=== PATIENT | female | born 2005 | race Caucasian/White ===

== ENCOUNTER 2023-07-27 00:11 | Emergency (ER) | payer OTHER, SELFPAY ==
[2023-07-27 00:15] VITALS: BP 132/84; PULSE 81; RESP 18; TEMP 36.5; O2SAT 97; BMI 27.5
--- NOTE | 2023-07-27 01:07 | ED_ITS ---
HPI - General Adult General Chief complaint: Nausea/Vomiting/Diarrhea Stated complaint: abd pain Time Seen by Provider: 07/27/23 00:53 Source: patient Mode of arrival: walk-in Limitations: no limitations History of Present Illness HPI narrative: presents complaining of epigastric pain and nausea. Did not vomit . No diarrhea or fever. Not short of breath and has not been coughing. present all day Related Data Home Medications Medication Instructions Recorded Confirmed omeprazole 40 mg capsule,delayed 40 mg PO DAILY 07/27/23 07/27/23 release rimegepant 75 mg disintegrating 75 mg PO DAILY 07/27/23 07/27/23 tablet (Nurtec ODT) Allergies Allergy/AdvReac Type Severity Reaction Status Date / Time amoxicillin Allergy Mild Verified 07/27/23 00:20 bee venom protein (honey bee) Allergy Mild Verified 07/27/23 00:20 morphine Allergy Mild Hives Verified 07/27/23 00:20 Review of Systems ROS Status of ROS 10 or more systems reviewed and unremark able except as noted in history and below Exam Constitutional Vital Signs, click to edit/add: Last Vital Signs Temp 97.7 F 07/27/23 00:15 Pulse 68 07/27/23 01:50 Resp 18 07/27/23 00:15 BP 117/74 07/27/23 01:50 Pulse Ox 98 07/27/23 01:50 O2 Del Method Room Air 07/27/23 00:15 Common normals: no apparent distress, average body habitus, oriented x3, no limitations, healthy appearing and alert Eye Common normals: PERRL, EOMs intact bilaterally and conjunctivae normal Respiratory Common normals: normal respiratory effort, no retractions, no use of accessory muscles and clear to auscultation bilaterally Cardio Common normals: regular rate, regular rhythm, S1 normal heart sound and S2 normal heart sound GI Common normals: Normal to inspection, nondistended, normoactive bowel sounds present and soft to palpation Other: mild epigastric tenderness Extremity Common normals: normal to inspection and full ROM Neuro Common normals: oriented x3, CN's II-XII intact bilaterally, moves all extremities and no focal motor deficits Psych Appearance: grossly normal Course Vital Signs Vital signs: Vital Signs Temperature 97.7 F 07/27/23 00:15 Pulse Rate 81 07/27/23 00:15 Respiratory Rate 18 07/27/23 00:15 Blood Pressure 132/84 07/27/23 00:15 Pulse Oximetry 97 07/27/23 00:15 Oxygen Delivery Method Room Air 07/27/23 00:15 Temperature 97.7 F 07/27/23 00:15 Pulse Rate 68 07/27/23 01:50 Respiratory Rate 18 07/27/23 00:15 Blood Pressure 117/74 07/27/23 01:50 Pulse Oximetry 98 07/27/23 01:50 Oxygen Delivery Method Room Air 07/27/23 00:15 Medical Decision Making MDM Narrative Medical decision making narrative: presents with epigastric pain and nausea . no fever or diarrhea. labs and diagnostic studies ordered. Patient did not want to wait for her results and signed out AMA Lab Data Labs: Lab Results 07/27/23 07/27/23 Range/Units 00:35 01:45 WBC 7.1 (4.0-11.0) 10^3/uL RBC 4.69 (4.20-5.40) 10^6/uL Hgb 13.5 (12.0-16.0) g/dL Hct 40.9 (36.0-48.0) % MCV 87.2 (81.0-99.0) fL MCH 28.8 (26.7-34.0) pg MCHC 33.0 (29.9-35.2) g/dL RDW 12.1 (11.0-15.0) % Plt Count 208 (150-450) 10^3/uL MPV 10.4 (9.5-13.5) fL Neut % (Auto) 68.7 (43.0-75.0) % Lymph % (Auto) 21.1 (20.5-60.0) % [place] % (Auto) 8.2 (1.7-12.0) % Eos % (Auto) 1.6 (0.9-7.0) % Baso % (Auto) 0.3 (0.2-2.0) % Neut # (Auto) 4.9 (1.4-6.5) 10^3/uL Lymph # (Auto) 1.5 (1.2-3.8) 10^3/uL [place] # (Auto) 0.6 (0.3-0.8) 10^3/uL Eos # (Auto) 0.1 (0.0-0.7) 10^3/uL Baso # (Auto) 0.0 (0.0-0.1) 10^3/uL Abs Immat Gran (auto) 0.01 (0.00-0.03) 10^3/uL Imm/Tot Granulo (auto) 0.1 (0.0-0.5) % Sodium 141 (136-145) mmol/L Potassium 3.7 (3.5-5.1) mmol/L Chloride 106 (98-107) mmol/L Carbon Dioxide 22.7 (21.0-32.0) mmol/L Anion Gap 16.0 BUN 12.0 (7.0-18.0) mg/dL Creatinine 0.59 (0.55-1.02) mg/dL Est GFR ( Amer) >60 (>=60) Est GFR (Non-Af Amer) >60 (>=60) BUN/Creatinine Ratio 20.3 Glucose 85 (74-106) mg/dL Lactate 1.4 (0.4-2.0) mmol/L Calcium 8.6 (8.5-10.1) mg/dL Total Bilirubin 0.3 (0.2-1.0) mg/dL AST 15 (15-37) U/L ALT 33 (14-59) U/L Alkaline Phosphatase 50 (46-116) U/L Total Protein 7.2 (6.4-8.2) g/dL Albumin 3.7 (3.4-5.0) g/dL Globulin 3.5 g/dL Albumin/Globulin Ratio 1.1 Lipase 25.0 (16.0-77.0) U/L Urine Color Lt. yellow (YELLOW) Urine Clarity Clear (CLEAR) Urine pH 6.0 (5.0-9.0) Ur Specific [place] 1.020 (1.005-1.025) Urine Protein Negative (NEG/TRACE) mg/dL Urine Glucose (UA) Negative (NEGATIVE) mg/dL Urine Ketones Negative (NEGATIVE) mg/dL Urine Occult Blood Negative (NEGATIVE) Urine Nitrite Negative (NEGATIVE) Urine Bilirubin Negative (NEGATIVE) Urine Urobilinogen 0.2 (0.2-1.0) EU/dL Ur Leukocyte Esterase Negative (NEGATIVE) Urine HCG, Qual Negative (NEGATIVE) Discharge Plan Discharge Chief Complaint: Nausea/Vomiting/Diarrhea Clinical Impression: Abdominal pain Patient Disposition: Home, Self-Care Mode of Transportation: Private Vehicle Prescriptions / Home Meds: No Action omeprazole 40 mg capsule,delayed release(DR/EC) 40 mg PO DAILY Nurtec ODT 75 mg tablet,disintegrating 75 mg PO DAILY Stand Alone Forms: Portal Instructions Referrals: Nitin Mott DO [Primary Care Provider] - 1 week Discharge Date/Time: 07/27/23 05:42
--- NOTE | 2023-07-27 01:09 | CT_ITS ---
The [address] [address] Patient Name: MAU SMITH MRN: [id number] date: 2005 Sex: F Assigned Patient Location: ER Current Patient Location: ER Accession/Order Number: [id number] Exam Date: 07/27/2023 01:56 Report Date: 07/27/2023 04:50 At the request of: DARLING JOSEPH Procedure: CT abdomen pelvis w con EXAM: CT abdomen pelvis w con HISTORY: Epigastric pain for one day. COMPARISON: None. TECHNIQUE: IV contrast enhanced CT imaging of the abdomen and pelvis was performed using 100 mL of Omnipaque 300 intravenous contrast. Sagittal and coronal reconstructions are provided. Dose reduction techniques were achieved by using automated exposure control and/or adjustment of mA and/or kV according to patient size and/or use of iterative reconstruction technique. FINDINGS: CT ABDOMEN: The lung bases are clear. The imaged heart is unremarkable. The liver, gallbladder, pancreas, spleen, adrenal glands, kidneys, stomach, small bowel, aorta and IVC appear normal. There is a retroaortic left renal vein, a normal variant. A navel piercing is incidentally noted. CT PELVIS: An IUD is in good position in the otherwise unremarkable uterus. The ovaries, urinary bladder, pelvic small bowel loops and colon appear normal. The appendix is not seen. There are no secondary findings of appendicitis. No inflammatory fat stranding, free fluid, loculated fluid or free air is seen in the abdomen or pelvis. No acute osseous abnormality or suspicious bony lesion is seen. CT/CT abdomen pelvis w con IMPRESSION: No acute findings in the abdomen or pelvis. No specific cause of epigastric pain is seen. Electronically authenticated by: ABHILASH HARDING Date: 07/27/2023 04:50
[2023-07-27 01:18] LABS: Basophils Percent Auto 0.3 % (0.2-2.0); Eosinophils Absolute Auto 0.1 10^3/uL (0.0-0.7); Eosinophils Percent Auto 1.6 % (0.9-7.0); Hematocrit 40.9 % (36.0-48.0); Hemoglobin 13.5 g/dL (12.0-16.0); Immature Granulocytes Abs Auto 0.01 10^3/uL (0.00-0.03); Immature Granulocytes Pct Auto 0.1 % (0.0-0.5); Lymphocytes Absolute Auto 1.5 10^3/uL (1.2-3.8); Lymphocytes Percent Auto 21.1 % (20.5-60.0); Mean Corpuscular Hemoglobin 28.8 pg (26.7-34.0); Mean Corpuscular Volume 87.2 fL (81.0-99.0); Mean Platelet Volume 10.4 fL (9.5-13.5); Monocytes Absolute Auto 0.6 10^3/uL (0.3-0.8); Monocytes Percent Auto 8.2 % (1.7-12.0); Neutrophils Absolute Auto 4.9 10^3/uL (1.4-6.5); Neutrophils Percent Auto 68.7 % (43.0-75.0); Platelet Count 208 10^3/uL (150-450); Red Blood Count 4.69 10^6/uL (4.20-5.40); Red Cell Distribution Width 12.1 % (11.0-15.0); White Blood Count 7.1 10^3/uL (4.0-11.0)
[2023-07-27] MEDS: 0.9 % SODIUM CHLORIDE 1,000 ML 999 ML IV (01:41)
[2023-07-27] MEDS: ONDANSETRON PF 4 MG/2 ML VIAL IV (01:42)
[2023-07-27 01:50] VITALS: BP 117/74; PULSE 68; O2SAT 98
[2023-07-27 01:52] LABS: Bilirubin Urine NEGATIVE (NEGATIVE); Blood Urine NEGATIVE (NEGATIVE); Clarity Urine CLEAR (CLEAR); Color Urine LT. YELLOW (YELLOW); Glucose Urine UA NEGATIVE (NEGATIVE); Ketones Urine NEGATIVE (NEGATIVE); Leukocyte Esterase Urine NEGATIVE (NEGATIVE); Nitrite Urine NEGATIVE (NEGATIVE); Protein Urine NEGATIVE (NEG/TRACE); Urobilinogen Urine 0.2 EU/dL (0.2-1.0)
[2023-07-27 01:53] LABS: Urine Microscopic Indicated NO
[2023-07-27 01:54] LABS: Alanine Aminotransferase 33 U/L (14-59); Albumin Globulin Ratio 1.1; Albumin Level 3.7 g/dL (3.4-5.0); Alkaline Phosphatase 50 U/L (46-116); Aspartate Amino Transferase 15 U/L (15-37); BUN Creatinine Ratio 20.3; Bilirubin Total 0.3 mg/dL (0.2-1.0); Calcium 8.6 mg/dL (8.5-10.1); Carbon Dioxide 22.7 mmol/L (21.0-32.0); Chloride 106 mmol/L (98-107); Estimated GFR (African America >60 (>=60); Estimated GFR (Non-African Ame >60 (>=60); Globulin 3.5 g/dL; Glucose 85 mg/dL (74-106); Potassium 3.7 mmol/L (3.5-5.1); Sodium 141 mmol/L (136-145); Total Protein 7.2 g/dL (6.4-8.2)
[2023-07-27 01:55] LABS: Lactate/Lactic Acid 1.4 mmol/L (0.4-2.0)
[2023-07-27 01:55] LABS: HCG Qualitative Urine* NEGATIVE (NEGATIVE)
--- NOTE | 2023-07-27 09:39 | SUR.HOLD ---
07/27/23 0939 pt called requesting results of CT scan, pt updated. Bridger Hoffman RN
== END 2023-07-27 05:42 | disposition left against medical advice (07) ==
LOC: ER 00:22
PROVIDERS: Emergency Provider Internal Medicine; PCP Family Medicine
DX: R10.9 Unspecified abdominal pain (principal); Z79.899 Other long term (current) drug therapy
CPT/HCPCS: 36415; 74177; 80053; 81003; 83605; 83690; 84703; 85025; 96374; 99284; J2405; Q9967

== ENCOUNTER 2023-11-01 10:01 | Outpatient (OUT) | payer OTHER, SELFPAY ==
--- NOTE | 2023-11-01 10:03 | US_ITS ---
The [address] [address] Patient Name: MAU SMITH MRN: [id number] date: 2005 Sex: F Assigned Patient Location: US Current Patient Location: Accession/Order Number: [id number] Exam Date: 11/01/2023 10:05 Report Date: 11/02/2023 10:28 At the request of: ALLAN WEAVER Procedure: US renal bladder EXAMINATION: US renal bladder HISTORY: Left Flank Pain R10.9, Urinary Tract Infection Symptoms R39. COMPARISON: No relevant comparison available. TECHNIQUE: Ultrasound examination was performed of the kidneys and urinary bladder. FINDINGS: RIGHT KIDNEY: No evidence of pelvocaliectasis, mass, or calculi. Normal renal cortical parenchymal echogenicity. Color Doppler demonstrates blood flow within the kidney. Kidney: 10.6 x 5.8 x 4.6 cm LEFT KIDNEY: No evidence of pelvocaliectasis, mass, or calculi. Normal renal cortical parenchymal echogenicity. Color Doppler demonstrates blood flow within the kidney. Kidney: 10.4 x 4.8 x 5.3 cm BLADDER: Small amount of echogenic debris within dependent aspect of bladder. No appreciable wall thickening or mass. Post void residual: 10 mL URETERAL JETS: Visualized bilaterally. US/US renal bladder IMPRESSION: 1. No appreciable urinary tract calculi or obstructive uropathy. 2. Trace amount of debris within urinary bladder; consider proteinaceous debris from urinary tract infection, or possibly blood products. Electronically authenticated by: DARRIUS TORO Date: 11/02/2023 10:28
--- OUTSIDE RECORDS SUMMARY | 2023-11-01 10:22 | XMS_ITS | CCD ---
Author Organization [facility] Care Team Providers Care Fish And Wildlife Technician Name Role Phone Sumaya Cabezas Unavailable Valarie Ramesh Unavailable SHRUTHI RONDON Admitting Unavailable SHRUTHI RONDON Attending Unavailable SHRUTHI RONDON Primary Care Unavailable JOHNSON, DR MILAGRO Novoa Admitting Unavailzbigniew ORNELAS, DR MILAGRO Novoa Attending Unavailabl viki HOLLANDC, DR BELTRAN Primary Care Unavailable AMINA WILSON Consulting Unavailable SETH GALAVIZ Consulting Unavailable SELAM, DR BELTRAN Primary Care Unavailable JENY SIMON Admitting Unavailable JENY SIMON Attending Unavailable AMINA KWON Consulting Unavailable JORGE LUIS, DR JACK Rios Admitting Unavailable JORGE LUIS, DR JACK Rios Attending Unavailable SHRUTHI RONDON Primary Care Unavailable JORGE LUIS, DR JACK Rios Consulting Unavailable ROWDY RUEDA Consulting Unavailable SHRUTHI RONDON Admitting Unavailable SHRUTHI RONDON Attending Unavailable SHRUTHI RONDON Primary Care Unavailable SHRUTHI RONDON Consulting Unavailable NON STAFF Primary Care Provider Unavailabl e Bullimore, UNION REPRESENTATIVE-BC Rand E Emergency Provider NON STAFF Primary Care Provider Unavailabl DO Rojas Sharma Emergency Provider Bullimore, Rand E Attending Unavailable Bullimore, Rand E Admitting Unavailable NON STAFF Primary Care Unavailable NON STAFF Primary Care Unavailable Rojas Lucio Attending Unavailable Rojas Lucio Admitting Unavailable Shruthi Dillon Unavailable YUE COLE Attending Unavailable YUE COLE Attending Unavailable SHRUTHI RONDON Primary Care Physician Dorcas Rubin. Attending Unavailable Angie Earl Attending Unavailable Lue, Dorcas M. Attending Unavailable Dorcas Rubin Attending Unavailable Dorcas Rubin Admitting Unavailable Allergies Allergy Classification Reported Allergen(s) Allergy Type Date of Onset Reaction(s) Facility (7 sources) Morphine; Translations: [morphine] Drug Allergy 3 Eruption of skin (disorder) [facility] (3 sources) Bee Sting Drug allergy Unknown hoozin Other (1 source) bee venom Drug allergy (disorder) [facility] (1 source) Morphine Drug Allergy [facility] (1 source) Morphine Drug Allergy 3 [facility] (2 sources) Bee/Wasp/Ant venom; Translations: [Bee Stings] Propensity to adverse reactions to substance Weal (disorder) [facility] (1 source) No Known Medication Allergies; Translations: [No Known Medication Allergies] Propensity to adverse reactions (disorder) [facility] Repository Medications Current Medications Medication Drug Class(es) Dates Sig (Normalized) Sig (Original) amoxicillin 875 mg / clavulanate 125 mg oral tablet (1 source) Penicillin-class Antibacterial Start: 05-01-2023 take 1 tablet by mouth every twelve hours Amoxicillin-Pot Clavulanate 875-125 MG 1 tablet Orally every 12 hrs for 10 day(s) Apr, Active cephalexin 500 mg oral capsule (1 source) Cephalosporin Antibacterial Start: 12-13-2022 take 500 mg by mouth twice daily Cephalexin Active 500 MG PO Twice daily 14 7 December 13, 2022 12:00am Nexplanon (2 sources) Progestin Start: 08-23-2019 inject 1 mg by subcutaneous injection once Nexplanon mg, SubCutaneous, Once, Refills(s) 0 Start Date: 08/23/19 Status: Ordered Start: 03-18-2019 Etonogestrel ( Nexplanon) 68 mg Implant Active 1 IMPLANT SUBDERMAL Once March 17, 2019 11:00pm fluticasone propionate 0.05 mg/actuat metered dose nasal spray (4 sources) Corticosteroid Start: 05-01-2023 take 2 spray(s) nasal route once daily Fluticasone Propionate 50 MCG/ACT 2 sprays Nasally Once a day for 14 day(s) Apr, Active Start: 06-02-2022 take 1 spray(s) nasa l route once daily Flonase Allergy Relief 50 MCG/ACT 1 spray in each nostril Nasally Once a day for 30 day(s) November, Not-Taking levonorgestrel 0.271006 mg/hr intrauterine system (4 sources) Progestin, Progestin-containing Intrauterine Device Start: 09-30-2023 Kyleena 19.5 mg intrauterine device mg EA, IntraUteral, Once, Refills(s) 0 Start Date: 09/30/23 Status: Ordered Kyleena Active Nurtec ODT (1 source) Start: 04-19-2023 take 1 mg by mouth once Nurtec ODT mg, Oral, Once, Refills(s) 0 Start Date: 04/19/23 Status: Ordered omeprazole 20 mg delayed release oral capsule (2 sources) Proton Pump Inhibitor Start: 09-30-2023 take 1 mg by mouth once daily omeprazole 20 mg Cap-DR mg cap(s), Oral, Daily, Refills(s) 0 Start Date: 09/30/23 Status: Ordered take 1 capsule by mouth once zac ly Omeprazole 40 MG 1 capsule 30 minutes before morning meal Orally Once a day Active ondansetron 4 mg oral tablet (2 sources) Serotonin-3 Receptor Antagonist Start: 03-13-2022 Ondansetron Hcl Active 4 MG PO every 6 to 8 hours December 13, 2022 12:00am predniSONE 20 mg oral tablet (1 source) Start: 05-01-2023 take 1 tablet by mouth every twelve hours predniSONE 20 MG 1 tablet Orally bid for 5 day(s) Apr, Active rimegepant 75 mg disintegrating oral tablet (1 source) Nurtec 75 MG 1 tablet on the tongue and allow to dissolve Orally Active Ventolin HFA 90 mcg/inh Aerosol (1 source) Start: 08-23-2019 take 2 puff(s) by inhalation every six hours for wheezing Ventolin HFA 90 mcg/inh Aerosol 2 puff(s), Inhalation, q6hr for wheezing, 18 gram, Refill(s) 0, [facility]/pharmacy #[id number], 167.64, cm, 08/23/19 11:52:00 EST, Height/Length Measured, 65.77, kg, 08/23/19 11:52:00 EST, Weight Measured Start Date: 08/23/19 Status: Ordered Completed/Discontinued Medications Medication Drug Class(es) Dates Sig (Normalized) Sig (Original) amoxicillin 875 mg oral tablet (2 sources) Penicillin-class Antibacterial Start: 06-02-2022 take 1 tablet by mouth every twelve hours Amoxicillin 875 MG 1 tablet Orally every 12 hrs for 7 days May, Not-Taking Etonogestrel (Nexplanon) 68 mg Implant (1 source) Start: 03-18-2019 End: 12-13-2022 Etonogestrel (Nexplanon) 68 mg Implant Discontinued 1 IMPLANT SUBDERMAL Once March 18, 2019 12:00am December 13, 2022 7:13am hyoscyamine sulfate 0.125 mg sublingual tablet (2 sources) take 1 tablet under the tongue three times daily as needed Hyoscyamine Sulfate 0.125 MG 1 tablet under the tongue and allow to dissolve as needed Sublingual Three times a day Not-Taking ibuprofen 800 mg oral tablet (5 sources) Nonsteroidal Anti-inflammatory Drug Start: 05-15-2020 End: 08-04-2020 take 800 mg by mouth every six hours Ibuprofen Discontinued 800 MG PO Q6H May 15, 2020 12:00am August 04, 2020 11:22pm Start: 08-23-2019 ibuprofen 800 mg, Refills(s) 0 Start Date: 08/23/19 Status: Ordered Start: 08-15-2019 End: 08-04-2020 take 800 mg by mouth three times daily Ibuprofen Discontinued 800 MG PO Three times daily August 15, 2019 1:00am August 04, 2020 11:22pm 24 hr loratadine 10 mg / pseudoephedrine sulfate 240 mg extended release oral tablet (1 source) alpha-Adrenergic Agonist Start: 11-27-2022 take 1 tablet by mouth every twenty-four hours Claritin-D 24 Hour 10-240 MG 1 tablet as needed Orally Once a day for 30 day(s) November, Not-Taking evening dosing 24 hr methylphenidate hydrochloride 20 mg extended release oral capsule (5 sources) Central Nervous System Stimulant Start: 08-04-2020 End: 08-04-2020 take 1 mg by mouth in the evening Methylphenidate Hcl (Jornay Pm) 20 mg capsule,del rel,ext rel sprink Discontinued MG PO August 04, 2020 1:00am August 04, 2020 11:22pm Start: 08-23-2019 methylphenidat e 30 mg, Refills(s) 0 Start Date: 08/23/19 Status: Ordered Start: 03-11-2019 End: 12-13-2022 take 20 mg by mouth once daily at bedtime Methylphenidate Hcl Discontinued 20 MG PO Daily at bedtime March 11, 2019 12:00am December 13, 2022 7:13am sulfamethoxazole 800 mg / trimethoprim 160 mg oral tablet (3 sources) Dihydrofolate Reductase Inhibitor Antibacterial, Sulfonamide Antimicrobial Start: 01-27-2021 take 1 tablet by mouth every twelve hours Bactrim DS 800-160 MG 1 tablet Orally Twice a day for 10 day(s) Jan, Not-Taking Problems Active Problems Problem Classification Problem Date Documented Date Episodic/Chronic Abdominal pain (6 sources) Unspecified abdominal pain; Translations: [Abdominal pain] Onset: 02-20-2022 03-18-2019 Episodic Acute and chronic tonsillitis (1 source) Acute tonsillitis, unspecified Episodic Attention-deficit, conduct, and disruptive behavior disorders (3 sources) Attention deficit hyperactivity disorder, combined type; Translations: [Attention-deficit hyperactivity disorder, combined type] Chronic Attention-deficit, conduct, and disruptive behavior disorders (1 source) Attention deficit hyperactivity disorder 08-23-2019 Chronic Gastritis and duodenitis (1 source) Gastritis, unspecified, without bleeding; Translations: [GASTRITIS UNS WITHOUT BLEEDING] Onset: 06-06-2022 Episodic Genitourinary symptoms and ill-defined conditions (4 sources) Microscopic hematuria; Translations: [Asymptomatic microscopic hematuria] Onset: 09-29-2023 Episodic Immunizations and screening for infectious disease (1 source) Contact with and (suspected) exposure to other viral communicable diseases Episodic Intracranial injury (2 sources) Concussion injury of body structure; Translations: [Concussion] 08-04-2020 Episodic Joint disorders and dislocations; trauma-related (3 sources) Derangement of knee; Translations: [Unspecified internal derangement of right knee] Chronic Joint disorders and dislocations; trauma-related (3 sources) Derangement of knee; Translations: [Unspecified internal derangement of left knee] Chronic Nausea and vomiting (8 sources) Nausea with vomiting, unspecified; Translations: [Nausea] Onset: 02-19-2022 Episodic Other non-traumatic joint disorders (2 sources) Pain in unspecified knee; Translations: [Knee pain] 03-11-2019 Episodic Other upper respiratory infections (3 sources) Acute upper respiratory infection, unspecified; Translations: [Acute sinusitis, unspecified] Episodic Otitis media and related conditions (1 source) Otitis media, unspecified, right ear Episodic Sprains and strains (4 sources) Sprain of knee; Translations: [Sprain of unspecified site of unspecified knee, initial encounter] 08-15-2019 Episodic Substance-related disorders (3 sources) Nicotine dependence, cigarettes, uncomplicated; Translations: [Nicotine dependence] Onset: 06-06-2022 Chronic Unclassified (1 source) Diarrhea, unspecified; Translations: [Diarrhea, unspecified] Onset: 12-13-2022 Unclassified (1 source) Unspecified injury of unspecified ankle, initial encounter; Translations: [Unspecified injury of unspecified ankle, initial encounter] Onset: 08-07-2022 Unclassified (1 source) Asymptomatic microscopic hematuria 04-19-2023 Urinary tract infections (2 sources) Urinary tract infectious disease; Translations: [Urinary tract infection, site not specified] 12-13-2022 Episodic Past or Other Problems Problem Classification Problem Date Documented Da te Episodic/Chronic Other non-traumatic joint disorders (4 sources) Pain in right shoulder; Translations: [PAIN IN RIGHT SHOULDER] Onset: 01-23-2022 Episodic Other screening for suspected conditions (not mental disorders or infectious disease) (1 source) Abnormal results of thyroid function studies; Translations: [ABNORMAL RESULTS THR FUNCTION STDY] Onset: 02-20-2022 Episodic Unclassified (1 source) Contact with and (suspected) exposure to covid-19 Z20.822 Unclassified (2 sources) Ankle sprain and strain 08-07-2022 Results Test Name Value Interpretation Reference Range Facility Lab Report[facility] 10-02-2023 Lab Reports [id number] 2F#1.00TIFF Normal [facility] Patient Educationon 10-01-19 Patient Education Gastroenterology Abdominal Pain, Adult Pain in the abdomen (abdominal pain) can be caused by many things. Often, abdominal pain is not serious and it gets better with no treatment or by being treated at home. However, sometimes abdominal pain is serious. Your health care provider will ask questions about your medical history and do a physical exam to try to determine the cause of your abdominal pain. Follow these instructions at home: Medicines ? Take bboh-fet-qdxvhmb and prescription medicines only as told by your health care provider. ? Do not take a laxative unless told by your health care provider. General instructions ? Watch your condition for any changes. ? Drink enough fluid to keep your urine pale yellow. ? Keep all follow-up visits as told by your health care provider. This is important. Contact a health care provider if: ? Your abdominal pain changes or gets worse. ? You are not hungry or you lose weight without trying. ? You are constipated or have diarrhea for more than 2?3 days. ? You have pain when you urinate or have a bowel movement. ? Your abdominal pain wakes you up at night. ? Your pain gets worse with meals, after eating, or with certain foods. ? You are vomiting and cannot keep anything down. ? You have a fever. ? You have blood in your urine. Get help right away if: ? Your pain does not go away as soon as your health care provider told you to expect. ? You cannot stop vomiting. ? Your pain is only in areas of the abdomen, such as the right side or the left lower portion of the abdomen. Pain on the right side could be caused by appendicitis. ? You have bloody or black stools, or stools that look like tar. ? You have severe pain, cramping, or bloating in your abdomen. ? You have signs of dehydration, such as: ? Dark urine, very little urine, or no urine. ? Cracked lips. ? Dry mouth. ? Sunken eyes. ? Sleepiness. ? Weakness. ? You have trouble breathing or chest pain. Summary ? Often, abdominal pain is not serious and it gets better with no treatment or by being treated at home. However, sometimes abdominal pain is serious. ? Watch your condition for any changes. ? Take qwwf-hwb-rciwlio and prescription medicines only as told by your health care provider. ? Contact a health care provider if your abdominal pain changes or gets worse. ? Get help right away if you have severe pain, cramping, or bloating in your abdomen. This information is not intended to replace advice given to you by your health care provider. Make sure you discuss any questions you have with your health care provider. Document Revised: 08/19/2020 Document Reviewed: 11/09/2019 [employer] Patient Education ? 2022 [employer] Orthopedics Flank Pain, Adult Flank pain is pain in your side. The flank is the area on your side between your upper belly (abdomen) and your spine. The pain may occur over a short time (acute), or it may be long-term or come back often (chronic). It may be mild or very bad. Pain in this area can be caused by many different things. Follow these instructions at home: ? Drink enough fluid to keep your pee (urine) pale yellow. ? Rest as told by your doctor. ? Take ofri-yfu-zxxjutj and prescription medicines only as told by your doctor. ? Keep a journal to keep track of: ? What has caused your flank pain. ? What has made your flank pain feel better. ? Keep all follow-up visits. Contact a doctor if: ? Medicine does not help your pain. ? You have new symptoms. ? Your pain gets worse. ? Your symptoms last longer than 2?3 days. ? You have trouble peeing. ? You are peeing more often than normal. Get help right away if: ? You have trouble breathing. ? You are short of breath. ? Your belly hurts, or it is swollen or red. ? You feel like you may vomit (nauseous). ? You vomit. ? You feel faint, or you faint. ? You have blood in your pee. ? You have flank pain and a fever. These symptoms may be an emergency. Get help right away. Call your local emergency services (911 in the [place] ? Do not wait to see if the symptoms will go away. ? Do not drive yourself to the hospital. Summary ? Flank pain is pain in your side. The flank is the area of your side between your upper belly (abdomen) and your spine. ? Flank pain may occur over a short time (acute), or it may be long-term or come back often (chronic). It may be mild or very bad. ? Pain in this area can be caused by many different things. ? Contact your doctor if your symptoms get worse or last longer than 2?3 days. This information is not intended to replace advice given to you by your health care provider. Make sure you discuss any questions you have with your health care provider. Document Revised: 09/11/2021 Document Reviewed: 09/11/2021 Elsevier Patient Education ? 2022 [employer] Pulmonary Medicine Health Risks of Smoking S (more content not included)... Normal [facility] Urology Office/Clinic Noteon 10-01-2023 Urology Office/Clinic Note Chief Complaint 5 month F/U HPI Staff 5 month follow up Previous DX: asymptotic microscopic hematuria, recurrent UTI, UTI symptoms [facility]-07/10/23 CC abdominal pain UA done 07/10/23 NEG No Culture done - PVR 0 Dysuria: _denies Incomplete bladder emptying: _sometimes Hematuria: _denies visible blood Frequency: 7-8 x daily Urgency: denies Nocturia: 1-2 nightly Stream: yes hesitation, normal stream Leaking: denies Post void dripping: yes Wearing pads/ Depends: denies Urge incontinence: denies Stress incontinence: yes Incontinence without Sensory Awareness: denies Abdominal pain: _pain started months only at night, pain radiates to her left side kidney Flank pain: sometimes left side, Sexual complaints: _denies History of Present Illness I have reviewed and verified the staff HPI to be accurate for this encounter. Portions of this record may have been created with voice recognition artificial intelligence software, specifically [employer], [email or web address] and or [employer]. Substitutions may have occurred due to the inherent limitations of voice recognition and artificial intelligence software. Review of Systems PHQ Score Initial Depression Screen Score: 0 SCORE Physical Exam Vitals & Measurements T: 37.2 ?C(Temporal Artery) HR: 84(Peripheral) BP: 128/86 HT: 66 in HT: 168 cm WT: 78.1 kg WT: 171.82 lb BMI: 27.67 General: Well developed, well nourished, in no acute distress. Genitourinary: Flank Pain: mild left sided. Bladder: nonpalpable. Assessment/Plan 1. UTI symptoms (R39.9: Unspecified symptoms and signs involving the genitourinary system) Patient reports dysuria at least once daily, frequency every 1-3 hours. Lower abdominal discomfort tends to be worse in the afternoons and evenings. Patient is recently noted that if it has been longer than 2 hours that she is urinated, this abdominal pain is worse. Patient does use ibuprofen 600 to 800 mg as needed for this discomfort, which does help to alleviate pain. PCP diagnosed patient with IBS previously. She reports 2 loose bowel movements daily, typically not constipated. She has not noticed that abdominal discomfort is related to bowel output. She does report a history of ovarian cysts, has an appointment with [employer]EC[employer] she believes next month. Patient went to urgent care on with complaints of lower abdominal pain. She states that this was similar to her baseline pain, but worse in nature. UA 07/10/23 negative Patient was previously referred to PFPT at [facility]. She was unable to schedule this due to her work schedule. She does report that she has been doing pelvic floor therapy with Kegel exercises and an gerson at home. Has not noticed any difference in pain and discomfort. Patient has a history of learned voiding dysfunction, as she previously held her urine for long periods of time in school. Patient was also advised to attempt to bladder retraining with voiding every 1.5 hours. However, patient states that voiding at work is dependent on someone being able to cover her work for her. - Follow-up with S[employer] SALES EXEC[employer]IVE as scheduled. - Continue bowel regimen, Kegels, bladder retraining. - Patient would like to follow-up in 6 months with [facility]. 2. Left flank pain (R10.9: Unspecified abdominal pain) Patient complains of mild intermittent left-sided flank pain. Mild tenderness to palpation on exam today. She does not notice that this is dependent on movement. She believes that this is random throughout the day. She does not know that this is related to urination or bowel movements. She does not have any personal history of kidney stones, but she admits that she does worry that she could have some contributing to symptoms. - US kidney/bladder 3. Asymptomatic microscopic hematuria (R31.21: Asymptomatic microscopic hematuria) Micro UA 04/19/23 - RBC 0-3 UA today with trace blood, trace leukocytes 4. Smoker (F17.200: Nicotine dependence, unspecified, uncomplicated) Vapes Unknown cancer risk Follow-up With When Contact Information Scottie CLIFTON, Dorcas Clinton, URL, URO Additional Instructions: 6 mos Patient Education Flank Pain, Adult, Nbib-bq-Kivb Abdominal Pain, Adult Hematuria, Adult Health Risks of Smoking Problem List/Past Medical History Ongoing ADHD Asymptomatic microscopic hematuria Microscopic hematuria Recurrent UTI Smoker UTI symptoms Historical No qualifying data Procedure/Surgical History Tonsillectomy and adenoidectomy (2006). Medications ibuprofen, 800 mg Kyleena 19.5 mg intrauterine device, IntraUteral, Once methylphenidate, 30 mg, Not taking Nexplanon, SubCutaneous, Once, Not taking Nurtec ODT, Oral, Once omeprazole 20 mg Cap-DR, Oral, Daily Ventolin HFA 90 mcg/inh Aerosol, 2 puff(s), Inhalation, q6hr, PRN, Not taking Zofran 4 mg Tab, 4 mg= 1 tab(s), Oral, q6hr, PRN Allergies Bee Stings (Hives) morphine (Rash) Social History Alcohol (more content not included)... Normal [facility] Comment on above: Result Comment: Elec tronically Signed By: BRENDA Earl APRN, Angie Grant\.br\Date and Time Signed: 10/01/23 16:04 EDT Ambulatory Visit Summaryon 0 09-30-2023 Ambulatory Visit Summary RADHA CARR :2005 Visit Date:09/30/2023 Ambulatory Visit Instructions Your Diagnosis Asymptomatic microscopic hematuria UTI symptoms Smoker Left flank pain Tests Performed US Renal -- Results Pending -- Please visit your patient portal for your results or contact your primary care physician. Your Care Team Attending Physician - BRENDA Earl APRN, [place] X Primary Care Physician - SHRUTHI RONDON CNP This Is Your Medications List Contact prescribing physician if questions or concerns albuterol (Ventolin HFA 90 mcg/inh Aerosol) etonogestrel (Nexplanon) ibuprofen levonorgestrel (Kyleena 19.5 mg intrauterine device) methylphenidate omeprazole (omeprazole 20 mg Cap-DR) ondansetron (Zofran 4 mg Tab) rimegepant (Nurtec ODT) Procedures Performed Tonsillectomy and adenoidectomy (2006). Discharge Vitals Temperature (Temporal Artery) 37.2 ?C Heart Rate (Peripheral) 84 Blood Pressure 128/86 Height 168 cm Height 66 in Weight 78.1 kg Weight 171.82 lb BMI 27.67 What to do next Scheduled Follow-Up Appointments Saturday 9:45 AM EDT With: Scottie CLIFTON, Dorcas Clinton Where: [facility] ED Note-Physicianon 04-22-20 ED Note-Physician [id number] 1#1.00TIFF [facility] Formson 04-22-2023 Forms [id number] 16#1.00TIFF [facility] Screenson 04-22-2023 Screens [id number] 2#1.00TIFF [facility] C Urineon 04-21-2023 Bacteria identified Cx Nom (U) Microbiology PROCEDURE: Urine Culture [R1] SOURCE: U Random BODY SITE: COLLECTED DATE/TIME: 04/19/2023 09:22 EDT RECEIVED DATE/TIME: 04/19/2023 13:03 EDT START DATE/TIME: 04/19/2023 13:03 EDT FREE TEXT SOURCE: Scottie CLIFTON, Dorcas Rubin MD, Dorcas Clinton FINAL REPORTS Final Report [] Verified Date/Time: 04/21/2023 07:32 EDT <10,000 cfu/ml Mixed skin contaminants Performing Locations R1: This test was performed at: [facility], [address] [place] [address], [id number]- , , [facility] Comment on above: Performed By: #### [id number] #### [facility] [address] [place] [id number] Patient Educationon 04-19-20 Patient Education Pulmonary Medicine Health Risks of Smoking Smoking tobacco is very bad for your health. Tobacco smoke contains many toxic chemicals that can damage every part of your body. Secondhand smoke can be harmful to those around you. Tobacco or nicotine use can cause many long-term (chronic) diseases. Smoking is difficult to quit because a chemical in tobacco, called nicotine, causes addiction or dependence. When you smoke and inhale, nicotine is absorbed quickly into your bloodstream through your lungs. Both inhaled and non-inhaled nicotine may be addictive. How can quitting affect me? There are health benefits of quitting smoking. Some benefits happen right away and others take time. Benefits may include: ? Blood flow, blood pressure, heart rate, and lung capacity may begin to improve. However, any lung damage that has already occurred cannot be repaired. ? Respiratory symptoms from smoking, such as nasal congestion and cough, may improve over time. ? Your risk of heart disease, stroke, and cancer is reduced. ? The overall quality of your health may improve. ? You may save money, as you will not spend money on tobacco products and may spend less money on smoking-related health issues. What can increase my risk? Smoking harms nearly every organ in the body. People who smoke tobacco have a shorter life expectancy and an increased risk of many serious medical problems. These include: ? More respiratory infections, such as colds and pneumonia. ? Cancer. ? Heart disease. ? Stroke. ? Chronic respiratory diseases. ? Delayed wound healing and increased risk of complications during surgery. ? Problems with reproduction, , and childbirth, such as infertility, early (premature) births, stillbirths, and defects. Secondhand smoke exposure to children increases the risk of: ? Sudden syndrome (SIDS). ? Infections in the nose, throat, or airways (respiratory infections). ? Chronic respiratory symptoms. What actions can I take to quit? Smoking is an addiction that affects both your body and your mind, and long-time habits can be hard to change. Your health care provider can recommend: ? Nicotine replacement products, such as patches, gum, and nasal sprays. Use these products only as directed. Do not replace cigarette smoking with electronic cigarettes, which are commonly called e-cigarettes. The safety of e-cigarettes is not known, and some may contain harmful chemicals. ? Programs and community resources, which may include group support, education, or talk therapy. ? Prescription medicines to help reduce cravings. ? A combination of two or more quit methods, which may increase the success of quitting. Where to find support Follow the recommendations from your health care provider about support groups and other assistance. You can also visit: ? U.S. Department of Health and Human Services: www.smokefree.gov ? [place] [employer]: www.freedomfromsmok ing.org ? [place] [employer]: www.heart.org Where to find more information ? Centers for Disease Control and Prevention: www.cdc.gov ? World Health Organization: www.who.int Summary ? Smoking tobacco is very bad for your health. Tobacco smoke contains many toxic chemicals that can damage every part of the body. ? Smoking is difficult to quit because a chemical in tobacco, called nicotine, causes addiction or dependence. ? There are immediate and long-term health benefits of quitting smoking. ? A combination of two or more quit methods may increase the success of quitting. This information is not intended to replace advice given to you by your health care provider. Make sure you discuss any questions you have with your health care provider. Document Revised: 07/03/2022 Document Reviewed: 07/03/2022 [employer] Patient Education ? 2022 [employer] Normal [facility] Urinalysison 04-19-2023 Bacteria LM Ql (Urine sed) TRACE Normal Trace [facility] Comment on above: Performed By: #### 1 [id number] #### [facility] [address] [place] [address] Bilirubin Ql (U) Negative Normal Negative [facility] Comment on above: Performed By: #### 1 [id number] #### [facility] [address] [place] [address] Clarity (U) CLEAR Normal Clear [facility] Comment on above: Performed By: #### 1 [id number] #### [facility] [address] [place] [address] Color (U) YELLOW Normal Yellow [facility] Comment on above: Performed By: #### 1 [id number] #### [facility] [address] [place] [address] Epithelial cells.squamous LM.HPF (Urine sed) [#/Area] 3-4 Normal 0-2 [facility] Comment on above: Performed By: #### 1 [id number] #### [facility] [address] [place] [address] Glucose Test strip (U) [Mass/Vol] Negative Normal Negative [facility] Comment on above: Performed By: #### 1 [id number] #### [facility] [address] [place] [address] Hemoglobin Ql (U) 2+ Abnormal Negative [facility] Comment on above: Performed By: #### 1 [id number] #### [facility] [address] [place] [address] Ketones (U) [Mass/Vol] Negative Normal Negative [facility] Comment on above: Performed By: #### 1 [id number] #### [facility] [address] [place] [address] [place].plasma/[place]. RBC (Bld) [Mass ratio] 0-3 Normal 0-3 [facility] Comment on above: Performed By: #### 1 [id number] #### [facility] [address] [place] [address] Nitrite Ql (U) Negative Normal Negative [facility] Comment on above: Performed By: #### 1 [id number] #### [facility] [address] [place] [address] pH (U) 7.5 [pH] Invalid Interpretation Code 5.0-9.0 [facility] Comment on above: Performed By: #### 1 [id number] #### [facility] [address] [place] [address] Protein (U) [Mass/Vol] Negative Normal Negative [facility] Comment on above: Performed By: #### 1 [id number] #### [facility] [address] [place] [address] Specific gravity (U) [Rel density] 1.010 Invalid Interpretation Code 1.005-1.030 [facility] Comment on above: Performed By: #### 1 [id number] #### [facility] [address] [place] [address] Type of Urine collection method Random Urine Normal [facility] Comment on above: Performed By: #### 1 [id number] #### [facility] [address] [place] [address] Urobilinogen Qn (U) 1.0 {Stevie'U}/dL Normal 0.0-1.0 [facility] Comment on above: Performed By: #### 1 [id number] #### [facility] [address] [place] [address] WBC Auto Ql (U) Negative Normal Negative [facility] Comment on above: Performed By: #### 1 [id number] #### [facility] [address] [place] [address] WBC LM.HPF (Urine sed) [#/Area] 0-5 Normal 0-5 [facility] Comment on above: Performed By: #### 1 [id number] #### [facility] [address] [place] [address] Urology Office/Clinic Noteon 04-19-2023 Urology Office/Clinic Note Chief Complaint [facility] [place] [facility] [place] for flank pain HPI Staff New Pt is here today due to recurrent UTI. Negative urine culture-03/15/22. BUN 12, Creatinine 0.7-03/13/22. Pt was seen at [facility] [place] on 12/13/22 due to diarrhea and nausea. Negative urine culture-12/13/22. BUN 13, Creatinine 0.64-12/13/22. Cephalexinn 500 mg (7 days) noticed no difference Ondansetron HCI 4 mg noticed no difference B&BSQ 14 Dysuria: _denies Incomplete bladder emptying: denies Hematuria: denies visible blood Frequency: every hour Urgency: _denies Nocturia: _denies Stream: _yes hesitation, normal stream Leaking: _denies Post void dripping: _yes sometimes, Wearing pads/ Depends: denies Urge incontinence: _denies Stress incontinence: _denies Incontinence without Sensory Awareness: _denies Abdominal pain: yes mostly in the afternoon, a year ago it started Flank pain: _denies Sexual complaints: denies History of Present Illness Tests reviewed: reviewed UA and External Records. I have reviewed the previous health record information and history for this patient from External Provider. I have reviewed and verified the staff HPI to be accurate for this encounter. There have been no associated fever, chills, flank pain, or blood in the urine. Denies any urinary infections since last encounter. Review of Systems PHQ Score Initial Depression Screen Score: 0 ROS - Provider Constitutional: denies weight loss, denies hot flashes. Eyes: denies eye problems. Gastrointestinal: denies nausea, denies vomiting. Cardiovascular: denies chest pain or angina. Integumentary: no dryness Musculoskeletal: denies musculoskeletal symptoms. ENMT: denies otolaryngeal symptoms. Respiratory: no shortness of breath. Heme/Lymph: denies easy bleeding tendency, denies easy bruising tendency. Psychiatric: no confusion, no anxiety. Genitourinary: See HPI. Physical Exam Vitals & Measurements T: 36.2 ?C(Temporal Artery) BP: 116/78 HT: 66 in HT: 168 cm WT: 78.1 kg WT: 171.82 lb BMI: 27.67 General Appearance: alert , no acute distress, well nourished, well developed female. Head: normocephalic . Eyes: normal orbit and globe. ENMT: normal examination of external ears. Chest: Lungs CTA, respirations non labored . Cardiovascular: regular rate and rhythm. Abdomen: soft, non distended, no tenderness, no mass or organomegaly, no hernia. Genitourinary: bladder nonpalpable, no flank tenderness. Lymph Nodes: unremarkable palpation of the cervical area. Skin: warm, dry, no bruising. Psychiatric: cooperative, affect appropriate for age, normal judgement, euthymic mood. Assessment/Plan 18 yo F here for new patient evaluation of pelvic pain suspected recurrent UTIs with mixed kaylin urine cultures. Pt has IBS. 1. UTI symptoms (R39.9: Unspecified symptoms and signs involving the genitourinary system) Pt was seen at [facility] [place] on 12/13/22 due to diarrhea and nausea. Negative urine culture-12/13/22. BUN 13, Creatinine 0.64-12/13/22. Was tx'd with Cephalexinn 500 mg (7 days) noticed no difference and Ondansetron HCI 4 mg noticed no difference. BUN 12, Creatinine 0.7-03/13/22. Negative urine culture-03/15/22. Pt states she had Chlamydia in the past, was tx'd. Pt states that she has lower abdominal pain, normally at night, OTC pain meds helps. Pt states that she doesn't think she has IBS, feels she was diagnosed with this b/c the PCP couldn't figure out what was wrong with her. Pt states that she voids almost every hour. Pt states she knows she does not drink enough water. Pt has regular BM's, not easy to go. Previously would hold her urine when she was in school. Discussed bladder pathophysiology, relationship to constipation and learned voiding dysfunction. Discussed treatment options including pelvic floor therapy with or without PT, bladder retraining, avoiding bladder irritants and [id number] supplements for bacteria. Given pain is not directly correlated to urination, unlikely interstitial cystitis Follow up in 5 mos. All questions/concerns were discussed. Pt to call the office if she encounters any issues prior. Pt acknowledges understanding. -Bowel regimen -Increase water intake. -Will refer pt for PFPT with biofeedback at [facility] [place] -Try to void every hour and a half. -Kegels. -OTC UTI supplements. 2. Smoker (F17.200: Nicotine dependence, unspecified, uncomplicated) Vapes. Never smoked cigarettes. Unclear risk of cancer -Follow up microUA/Cx 3. Microscopic hematuria (R31.29: Other microscopic hematuria) UA today shows moderate blood. Will send for micro and cx. Advised pt that if the results come back abnormal, we will sched a cysto vs repeat in 6 mths given low risk Pelvic pain (R10.2: Pelvic and perineal pain) See #1 At night, unrelated to voiding necessarily . -Advised pt to try to see what makes her pain come and what helps her sxs resolve -PFPT w/ biofeedback Ordered: [facility] [place] [facility] [place] External Ambulatory Referral Voiding dysfunction (N39.8: Othe (more content not included)... Normal [facility] Comment on above: Result Comment: Elec tronically Signed By: Dorcas Rubin MD\.br\Date and Time Signed: 04/19/23 09:32 EDT\.br\Electronically Co-Signed By: Zoya Chanel\.br\Date and Time Co-Signed: 04/19/23 09:14 EDT Alanine aminotransferase [En zymatic activity/volume] in Serum or PlasmaOrdered By: Rojas Lucio on 12-13-2022 ALT [Catalytic activity/Vol] 16 U/L 7-52 [facility] Albumin [Mass/volume] in Ser um or Plasma by Bromocresol green (BCG) dye binding methoOrdered By: Rojas Lucio on 12-13-2022 Albumin BCG dye [Mass/Vol] 4.3 g/dL 3.5-5.7 [facility] Alkaline phosphatase [Enzyma tic activity/volume] in Serum or PlasmaOrdered By: Rojas Lucio on 12-13-2022 ALP [Catalytic activity/Vol] 49 U/L 34-104 [facility] Aspartate aminotransferase [ Enzymatic activity/volume] in Serum or PlasmaOrdered By: Rojas Lucio on 12-13-2022 AST [Catalytic activity/Vol] 12 U/L 13-39 [facility] Automated erythrocytes count in urine sediment (number/area)Ordered By: Rojas Lucio on 12-13-2022 RBC Auto (Urine sed) [#/Area] 0-1 [HPF] 0-4 [facility] Automated leukocytes count i n urine sediment (number/area)Ordered By: Rojas Lucio on 12-13-2022 WBC Auto (Urine sed) [#/Area] 50-100 [HPF] 0-4 [facility] Automated urine hyaline cast s count (number/volume)Ordered By: Rojas Lucio on 12-13-2022 Hyaline casts Auto (U) [#/Vol] None seen [LPF] 0-1 [facility] Basophils Auto (Bld) [#/Vol] Ordered By: Rojas Lucio on 12-13-2022 Basophils (Bld) [#/Vol] 0.1 10*3/uL 0.0-0.2 [facility] Basophils/100 WBC Auto (Bld) Ordered By: Rojas Lucio on 12-13-2022 Basophils/100 WBC (Bld) 0.6 % . [facility] Bilirubin Test strip Ql (U)O rdered By: Rojas Lucio on 12-13-2022 Bilirubin Ql (U) Negative Negative [facility] Bilirubin.total [Mass/volume ] in Serum or PlasmaOrdered By: Rojas Lucio on 12-13-2022 Bilirubin [Mass/Vol] 0.4 mg/dL 0.3-1.0 [facility] Calcium [Mass/volume] in Ser um or PlasmaOrdered By: Rojas Lucio on 12-13-2022 Calcium [Mass/Vol] 9.1 mg/dL 8.6-10.3 [facility] Carbon dioxide, total [Moles /volume] in Serum or PlasmaOrdered By: Rojas Lucio on 12-13-2022 CO2 [Moles/Vol] 25.0 mmol/L 21.0-31.0 [facility] Casts typing in urine sedime nt by light microscopyOrdered By: Rojas Lucio on 12-13-2022 Casts LM Nom (Urine sed) None seen [LPF] None Seen [facility] Chloride [Moles/volume] in S glenna or PlasmaOrdered By: Rojas Lucio on 12-13-2022 Chloride [Moles/Vol] 107 mmol/L 98-107 [facility] Color Auto (U)Ordered By: Von red Khadijah on 12-13-2022 Color (U) Yellow Yellow [facility] Complete Blood Count Auto Di ffon 12-13-2022 Basophils (Bld) [#/Vol] 0.1 10*3/uL Normal 0.0-0.2 [facility] Comment on above: Result Comment: PERF ORMED BY: [place] [address] PATHOLOGIST [employer] KIMBERLY CARTER M.D. Performed By: #### C BC, LIPASE, CMP #### [facility] [address] Basophils/100 WBC (Bld) 0.6 % Normal . [facility] Comment on above: Performed By: #### C BC, LIPASE, CMP #### [facility] [address] [place] [address] [place] Eosinophils (Bld) [#/Vol] 0.3 10*3/uL Normal 0.0-0.45 [facility] Comment on above: Performed By: #### C BC, LIPASE, CMP #### [facility] [address] [place] [address] [place] Eosinophils/100 WBC (Bld) 3.2 % Normal . [facility] Comment on above: Performed By: #### C BC, LIPASE, CMP #### [facility] [address] Erythrocyte distribution width (RBC) [Ratio] 12.9 % Normal 11.9-15.3 [facility] Comment on above: Performed By: #### C BC, LIPASE, CMP #### [facility] [address] Hematocrit (Bld) [Volume fraction] 42.5 % Normal 34.0-46.4 [facility] Comment on above: Performed By: #### C BC, LIPASE, CMP #### [address] Hemoglobin (Bld) [Mass/Vol] 14.3 g/dL Normal 11.8-15.4 [facility] Comment on above: Performed By: #### C BC, LIPASE, CMP #### [address] Lymphocytes (Bld) [#/Vol] 2.8 10*3/uL Normal 1.00-4.8 [facility] Comment on above: Performed By: #### C BC, LIPASE, CMP #### [address] Lymphocytes/100 WBC (Bld) 29.7 % Normal . [facility] Comment on above: Performed By: #### C BC, LIPASE, CMP #### [address] MCH (RBC) [Entitic mass] 28.4 pg Normal 24.7-34.3 [facility] Comment on above: Performed By: #### C BC, LIPASE, CMP #### [address] MCV (RBC) [Entitic vol] 84.8 fL Normal 80-100 [facility] Comment on above: Performed By: #### C BC, LIPASE, CMP #### [address] Mean Corpuscular HGB Conc 33.5 g/dL Normal 32.0-35.0 [facility] Comment on above: Performed By: #### C BC, LIPASE, CMP #### [facility] [address] [place] [address] [place] Monocytes (Bld) [#/Vol] 0.5 10*3/uL Normal 0.0-0.8 [facility] Comment on above: Performed By: #### C BC, LIPASE, CMP #### [facility] [address] [place] [address] [place] Monocytes/100 WBC (Bld) 17.54 % Normal 0.00-20.00 [facility] Comment on above: Performed By: #### C BC, LIPASE, CMP #### [facility] [address] [place] [address] [place] Monocytes/100 WBC (Bld) 5.8 % Normal . [facility] Comment on above: Performed By: #### C BC, LIPASE, CMP #### [facility] [address] Neutrophils (Bld) [#/Vol] 5.7 10*3/uL Normal 1.8-7.7 [facility] Comment on above: Performed By: #### C BC, LIPASE, CMP #### [facility] [address] [place] [address] [place] Neutrophils/100 WBC (Bld) 60.7 % Normal . [facility] Comment on above: Performed By: #### C BC, LIPASE, CMP #### [facility] [address] [place] [address] [place] NRBC% 0.1 /100{WBC} Normal 0-0.5 [facility] Comment on above: Performed By: #### C BC, LIPASE, CMP #### [facility] [address] [place] [address] [place] Platelet mean volume (Bld) [Entitic vol] 8.4 fL Normal 6.3-10.7 [facility] Comment on above: Performed By: #### C BC, LIPASE, CMP #### [facility] [address] [place] [address] [place] Platelets (Bld) [#/Vol] 211 10*3/uL Normal 150-450 [facility] Comment on above: Performed By: #### C BC, LIPASE, CMP #### [address] RBC (Bld) [#/Vol] 5.02 10*6/uL High 3.60-5.00 [facility] Comment on above: Performed By: #### C BC, LIPASE, CMP #### [address] WBC (Bld) [#/Vol] 9.4 10*3/uL Normal 3.8-11.6 [facility] Comment on above: Performed By: #### C BC, LIPASE, CMP #### [address] Comprehensive Metabolic Pane amado 12-13-2022 Albumin [Mass/Vol] 4.3 g/dL Normal 3.5-5.7 [facility] Comment on above: Performed By: #### C BC, LIPASE, CMP #### [address] Albumin/Globulin [Mass ratio] 1.7 {ratio} Normal [facility] Comment on above: Performed By: #### C BC, LIPASE, CMP #### [address] ALP [Catalytic activity/Vol] 49 U/L Normal 34-104 [facility] Comment on above: Performed By: #### C BC, LIPASE, CMP #### [address] ALT [Catalytic activity/Vol] 16 U/L Normal 7-52 [facility] Comment on above: Performed By: #### C BC, LIPASE, CMP #### [address] Anion gap [Moles/Vol] 11.0 mmol/L Normal 6.0-15.0 [facility] Comment on above: Performed By: #### C BC, LIPASE, CMP #### [address] AST [Catalytic activity/Vol] 12 U/L Low 13-39 [facility] Comment on above: Performed By: #### C BC, LIPASE, CMP #### [facility] [address] Bilirubin [Mass/Vol] 0.4 mg/dL Normal 0.3-1.0 [facility] Comment on above: Performed By: #### C BC, LIPASE, CMP #### [facility] [address] Calcium [Mass/Vol] 9.1 mg/dL Normal 8.6-10.3 [facility] Comment on above: Performed By: #### C BC, LIPASE, CMP #### [address] Chloride [Moles/Vol] 107 mmol/L Normal 98-107 [facility] Comment on above: Performed By: #### C BC, LIPASE, CMP #### [address] CO2 [Moles/Vol] 25.0 mmol/L Normal 21.0-31.0 [facility] Comment on above: Performed By: #### C BC, LIPASE, CMP #### [address] Creatinine [Mass/Vol] 0.64 mg/dL Normal 0.60-1.20 [facility] Comment on above: Performed By: #### C BC, LIPASE, CMP #### [place] [address] [place] Creatinine Clr Calc Pharmacy 152.09 [facility] Comment on above: Performed By: #### C BC, LIPASE, CMP #### [place] [address] [place] GFR/1.73 sq M.predicted MDRD (S/P/Bld) [Vol rate/Area] mL/min/{1.73_m2} [facility] Comment on above: Performed By: #### C BC, LIPASE, CMP #### [place] [address] [place] Globulin (S) [Mass/Vol] 2.6 g/dL Normal [facility] Comment on above: Performed By: #### C BC, LIPASE, CMP #### [facility] [address] Glucose [Mass/Vol] 92 mg/dL Normal 70-100 [facility] Comment on above: Result Comment: Formerly named [facility] Glucose Reference Range is dependent on time and content of last meal. Glucose of more than 200 mg/dL in a nonstressed, ambulatory subject supports the diagnosis of Diabetes Mellitus. ADA recommended reference range Performed By: #### C BC, LIPASE, CMP #### [facility] [address] Potassium [Moles/Vol] 4.0 mmol/L Normal 3.5-5.1 [facility] Comment on above: Performed By: #### C BC, LIPASE, CMP #### [facility] [address] Protein [Mass/Vol] 6.9 g/dL Normal 6.4-8.9 [facility] Comment on above: Performed By: #### C BC, LIPASE, CMP #### [facility] [address] [place] [address] [place] Sodium [Moles/Vol] 139 mmol/L Normal 136-145 [facility] Comment on above: Performed By: #### C BC, LIPASE, CMP #### [facility] [address] [place] [address] [place] Urea nitrogen [Mass/Vol] 13 mg/dL Normal 7-25 [facility] Comment on above: Performed By: #### C BC, LIPASE, CMP #### [facility] [address] [place] [address] [place] Creatinine [Mass/volume] in Serum or PlasmaOrdered By: Rojas Lucio on 12-13-2022 Creatinine [Mass/Vol] 0.64 mg/dL 0.60-1.20 [facility] Dipstick and Microscopicon 0 12-13-2022 Appearance (U) Cloudy Critically abnormal Clear [facility] Comment on above: Order Comment: Name Collection Type:: Clean-Voided Midstream Performed By: #### U HCG, ADDONUAPLUS, CUU #### [facility] [address] [place] [address] [place] Bacteria,Urine 3+ High None Seen [facility] Comment on above: Order Comment: Name Collection Type:: Clean-Voided Midstream Performed By: #### U HCG, ADDONUAPLUS, CUU #### [facility] [address] [place] [address] [place] Bilirubin,Urine Negative Normal Negative [facility] Comment on above: Order Comment: Name Collection Type:: Clean-Voided Midstream Performed By: #### U HCG, ADDONUAPLUS, CUU #### [facility] [address] [place] [address] [place] Color (U) Yellow Normal Yellow [facility] Comment on above: Order Comment: Name Collection Type:: Clean-Voided Midstream Performed By: #### U HCG, ADDONUAPLUS, CUU #### [facility] [address] [place] [address] Glucose Ql (U) Normal Normal Normal [facility] Comment on above: Order Comment: Name Collection Type:: Clean-Voided Midstream Performed By: #### U HCG, ADDONUAPLUS, CUU #### [facility] [address] [place] [address] [place] Hyaline Casts,Urine None Seen Normal 0-1 [facility] Comment on above: Order Comment: Name Collection Type:: Clean-Voided Midstream Performed By: #### U HCG, ADDONUAPLUS, CUU #### [facility] [address] [place] [address] [place] Ketones Ql (U) Negative Normal Negative [facility] Comment on above: Order Comment: Name Collection Type:: Clean-Voided Midstream Performed By: #### U HCG, ADDONUAPLUS, CUU #### [facility] [address] [place] [address] Leukocyte esterase Test strip Ql (U) 4+ High Negative [facility] Comment on above: Order Comment: Name Collection Type:: Clean-Voided Midstream Performed By: #### U HCG, ADDONUAPLUS, CUU #### [place] [address] [place] Nitrite,Urine Negative Normal Negative [facility] Comment on above: Order Comment: Name Collection Type:: Clean-Voided Midstream Performed By: #### U HCG, ADDONUAPLUS, CUU #### [address] Occult Blood,Urine 1+ High Negative [facility] Comment on above: Order Comment: Name Collection Type:: Clean-Voided Midstream Performed By: #### U HCG, ADDONUAPLUS, CUU #### [address] Other Casts,Urine None Seen Normal None Seen [facility] Comment on above: Order Comment: Name Collection Type:: Clean-Voided Midstream Performed By: #### U HCG, ADDONUAPLUS, CUU #### [address] pH (U) 5.5 [pH] Normal 5.0-9.0 [facility] Comment on above: Order Comment: Name Collection Type:: Clean-Voided Midstream Performed By: #### U HCG, ADDONUAPLUS, CUU #### [address] Protein,Urine Negative Normal Negative [facility] Comment on above: Order Comment: Name Collection Type:: Clean-Voided Midstream Performed By: #### U HCG, ADDONUAPLUS, CUU #### [place] [address] [place] RBC LM.HPF (Urine sed) [#/Area] 0 /[HPF] Normal 0-4 [facility] Comment on above: Order Comment: Name Collection Type:: Clean-Voided Midstream Performed By: #### U HCG, ADDONUAPLUS, CUU #### [address] Specificy [place],Urine 1.008 Normal 1.001-1.030 [facility] Comment on above: Order Comment: Name Collection Type:: Clean-Voided Midstream Performed By: #### U HCG, ADDONUAPLUS, CUU #### [facility] [address] [place] [address] Squamous Epithelial Cell,Urine 5-9 High 0-2 [facility] Comment on above: Order Comment: Name Collection Type:: Clean-Voided Midstream Performed By: #### U HCG, ADDONUAPLUS, CUU #### [facility] [address] [place] [address] Urobilinogen,Urine Normal Normal Normal [facility] Comment on above: Order Comment: Name Collection Type:: Clean-Voided Midstream Performed By: #### U HCG, ADDONUAPLUS, CUU #### [facility] [address] [place] [address] WBC,Urine 50-100 High 0-4 [facility] Comment on above: Order Comment: Name Collection Type:: Clean-Voided Midstream Performed By: #### U HCG, ADDONUAPLUS, CUU #### [facility] [address] [place] [address] Eosinophils Auto (Bld) [#/Vo l]Ordered By: Rojas Lucio on 12-13-2022 Eosinophils (Bld) [#/Vol] 0.3 10*3/uL 0.0-0.45 [facility] Eosinophils/100 WBC Auto (Bl d)Ordered By: Rojas Lucio on 12-13-2022 Eosinophils/100 WBC (Bld) 3.2 % . [facility] Erythrocyte distribution wid th Auto (RBC) [Ratio]Ordered By: Rojas Lucio on 12-13-2022 Erythrocyte distribution width (RBC) [Ratio] 12.9 % 11.9-15.3 [facility] Globulin Calc (S) [Mass/Vol] Ordered By: Rojas Lucio on 12-13-2022 Globulin (S) [Mass/Vol] 2.6 g/dL [facility] Glucose [Mass/volume] in Ser um or PlasmaOrdered By: Rojas Lucio on 12-13-2022 Glucose [Mass/Vol] 92 mg/dL 70-100 [facility] Comment on above: ADA recommended refe rence rangeRandom Glucose Reference Range is dependent on time and content of last meal. Glucose of more than 200 mg/dL in a nonstressed, ambulatory subject supports the diagnosis of Diabetes Mellitus. HCG ( test) IA.rapi d Ql (U)Ordered By: Rojas Lucio on 12-13-2022 HCG ( test) Ql (U) Negative [facility] HCG,Urineon 12-13-2022 Beta HCG ( test) Ql (U) Negative Normal [facility] Comment on above: Order Comment: Name Collection Type:: Clean-Voided Midstream Result Comment: PERF ORMED BY: [place] [address] PATHOLOGIST [employer] KIMBERLY CARTER M.D. Performed By: #### U HCG, ADDONUAPLUS, CUU #### [address] [address] Hematocrit Auto (Bld) [Volum e fraction]Ordered By: Rojas Lucio on 12-13-2022 Hematocrit (Bld) [Volume fraction] 42.5 % 34.0-46.4 [facility] Hemoglobin [Mass/volume] in BloodOrdered By: Rojas Lucio on 12-13-2022 Hemoglobin (Bld) [Mass/Vol] 14.3 g/dL 11.8-15.4 [facility] Ketones Auto test strip (U) [Mass/Vol]Ordered By: Rojas Lucio on 12-13-2022 Ketones (U) [Mass/Vol] Negative Negative [facility] Leukocytes [#/volume] correc daja for nucleated erythrocytes in Blood by Automated counOrdered By: Rojas Lucio on 12-13-2022 WBC corrected for nucl RBC Auto (Bld) [#/Vol] 9.4 10*3/uL 3.8-11.6 [facility] Lipaseon 12-13-2022 Lipase [Catalytic activity/Vol] 46.0 U/L Normal 11.0-82.0 [facility] Comment on above: Result Comment: PERF ORMED BY: [place] [id number] PATHOLOGIST [employer] KIMBERLY CARTER M.D. Performed By: #### C BC, LIPASE, CMP #### [facility] [address] Lipase [Enzymatic activity/v olume] in Serum or PlasmaOrdered By: Rojas Lucio on 12-13-2022 Lipase [Catalytic activity/Vol] 46.0 U/L 11.0-82.0 [facility] Lymphocytes Auto (Bld) [#/Vo l]Ordered By: Rojas Lucio on 12-13-2022 Lymphocytes (Bld) [#/Vol] 2.8 10*3/uL 1.00-4.8 [facility] Lymphocytes/100 WBC Auto (Bl d)Ordered By: Rojas Lucio on 12-13-2022 Lymphocytes/100 WBC (Bld) 29.7 % . [facility] MCH Auto (RBC) [Entitic mass ]Ordered By: Rojas Lucio on 12-13-2022 MCH (RBC) [Entitic mass] 28.4 pg 24.7-34.3 [facility] MCHC Auto (RBC) [Mass/Vol]Or dered By: Rojas Lucio on 12-13-2022 MCHC (RBC) [Mass/Vol] 33.5 g/dL 32.0-35.0 [facility] MCV Auto (RBC) [Entitic vol] Ordered By: Rojas Lucio on 12-13-2022 MCV (RBC) [Entitic vol] 84.8 fL 80-100 [facility] Monocyte distribution width [Entitic volume] in Blood by AutomatedOrdered By: Rojas Lucio on 12-13-2022 Monocyte distribution width Auto (Bld) [Entitic vol] 17.54 % 0.00-20.00 [facility] Monocytes Auto (Bld) [#/Vol] Ordered By: Rojas Lucio on 12-13-2022 Monocytes (Bld) [#/Vol] 0.5 10*3/uL 0.0-0.8 [facility] Monocytes/100 WBC Auto (Bld) Ordered By: Rojas Lucio on 12-13-2022 Monocytes/100 WBC (Bld) 5.8 % . [facility] Neutrophils Auto (Bld) [#/Vo l]Ordered By: Rojas Lucio on 12-13-2022 Neutrophils (Bld) [#/Vol] 5.7 10*3/uL 1.8-7.7 [facility] Neutrophils/100 WBC Auto (Bl d)Ordered By: Rojas Lucio on 12-13-2022 Neutrophils/100 WBC (Bld) 60.7 % . [facility] Nitrite Test strip Ql (U)Ord ered By: Rojas Lucio on 12-13-2022 Nitrite Ql (U) Negative Negative [facility] No Panel InformationOrdered By: Rojas Lucio on 12-13-2022 Estimated GFR (CKD-EPI) > 60.0 mL/Min [facility] Creatinine Clearance (Chem 152.09 [facility] Nucleated erythrocytes [Pres ence] in Blood by Automated countOrdered By: Rojas Lucio on 12-13-2022 Nucleated RBC Auto Ql (Bld) 0.1 /100{WBC} 0-0.5 [facility] Platelet mean volume Auto (B ld) [Entitic vol]Ordered By: Rojas Lucio on 12-13-2022 Platelet mean volume (Bld) [Entitic vol] 8.4 fL 6.3-10.7 [facility] Platelets Auto (Bld) [#/Vol] Ordered By: Rojas Lucio on 12-13-2022 Platelets (Bld) [#/Vol] 211 10*3/uL 150-450 [facility] Potassium [Moles/volume] in Serum or PlasmaOrdered By: Rojas Lucio on 12-13-2022 Potassium [Moles/Vol] 4.0 mmol/L 3.5-5.1 [facility] Protein Auto test strip (U) [Mass/Vol]Ordered By: Rojas Lucio on 12-13-2022 Protein (U) [Mass/Vol] Negative Negative [facility] Protein [Mass/volume] in Ser um or PlasmaOrdered By: Rojas Lucio on 12-13-2022 Protein [Mass/Vol] 6.9 g/dL 6.4-8.9 [facility] RBC Auto (Bld) [#/Vol]Ordere d By: Rojas Lucio on 12-13-2022 RBC (Bld) [#/Vol] 5.02 10*6/uL 3.60-5.00 [facility] Serum or plasma albumin/glob ulin mass ratioOrdered By: Rojas Lucio on 12-13-2022 Albumin/Globulin [Mass ratio] 1.7 {ratio} [facility] Serum or plasma anion gap de terminationOrdered By: Rojas Lucio on 12-13-2022 Anion gap [Moles/Vol] 11.0 mmol/L 6.0-15.0 [facility] Sodium [Moles/volume] in Ser um or PlasmaOrdered By: Rojas Lucio on 12-13-2022 Sodium [Moles/Vol] 139 mmol/L 136-145 [facility] Specific gravity Auto test s trip (U) [Rel density]Ordered By: Rojas Lucio on 12-13-2022 Specific gravity (U) [Rel density] 1.008 1.001-1.030 [facility] Squamous epithelial cells de tection in urine sediment by light microscopyOrdered By: Rojas Lucio on 12-13-2022 Epithelial cells.squamous LM Ql (Urine sed) 5-9 [HPF] 0-2 [facility] Urea nitrogen [Mass/volume] in Serum or PlasmaOrdered By: Rojas Lucio on 12-13-2022 Urea nitrogen [Mass/Vol] 13 mg/dL 7-25 [facility] Urine Cultureon 12-13-2022 Bacteria identified Cx Nom (U) 75,000 colonies/ml mixed bacterial skin contaminants 2 Days PERFORMED BY: [place] [address] PATHOLOGIST [employer] IN[employer] KIMBERLY CARTER M.D. Normal [facility] Comment on above: Performed By: #### U HCG, ADDSIGRID, CUU #### [address] Urine bacteria detection by automated methodOrdered By: Rojas Lucio on 12-13-2022 Bacteria Auto Ql (U) 3+ None Seen [facility] Urine clarity by refractomet ry automatedOrdered By: Rojas Lucio on 12-13-2022 Clarity Refractometry automated (U) Cloudy Clear [facility] Urine glucose measurement by automated test strip (mass/volume)Ordered By: Rojas Lucio on 12-13-2022 Glucose Auto test strip (U) [Mass/Vol] Normal mg/dL Normal [facility] Urine hemoglobin detection b y automated test stripOrdered By: Rojas Lucio on 12-13-2022 Hemoglobin Auto test strip Ql (U) 1+ Negative [facility] Urine leukocyte esterase det ection by automated test stripOrdered By: Rojas Lucio on 12-13-2022 Leukocyte esterase Auto test strip Ql (U) 4+ Negative [facility] Urobilinogen Auto test strip (U) [Mass/Vol]Ordered By: Rojas Lucio on 12-13-2022 Urobilinogen (U) [Mass/Vol] Normal mg/dL Normal [facility] WBC Auto (Bld) [#/Vol]Ordere d By: Rojas Lucio on 12-13-2022 WBC (Bld) [#/Vol] 9.4 10*3/uL 3.8-11.6 [facility] pH Auto test strip (U)Ordere d By: Rojas Lucio on 12-13-2022 pH (U) 5.5 [pH] 5.0-9.0 [facility] XR ankle RT min 3V*on 2022 XR ankle RT min 3V* [facility] [place] [address] XRay Report Signed Patient: Radha Carr MR#: [id number] 1 : 2005 Acct:[id number] Age/Sex: 17 / F ADM Date: 08/07/22 Loc: ER Room: Type: [facility] ER Attending Dr: Copies to: BRENDA Dove Ordering Provider: BRENDA Dove Date of Service: 08/07/22 XR/XR ankle RT min 3V*: Extremity Injury, Lower 3views Rightankle COMPARISON:None HISTORY: RIGHT ankle injury No fracture, dislocation or focal soft tissue abnormality seen. XR/XR ankle RT min 3V* IMPRESSION: No acute findings. Impression dictated by: Tyrese Rivera M.D.08/07/2022 2:48 PM Dictation Location: [place] [address] Transcribed By: [facility] 08/07/22 1448 Dictated By: Tyrese Rivera DO 08/07/22 1446 Signed By: 08/07/22 1448 [facility] GROUP A STREP CULTUREon S. pyogenes Ag Ql (Unsp spec) Isolate 1 Streptococcus pyogenes Light growth of ORGANISM 1 Streptococcus pyogenes ANTIBIOTIC M.I.C RX STATUS Benzylpenicillin <=0.06 S F Ampicillin <=0.25 S F Cefotaxime <=0.12 S F Ceftriaxone <=0.12 S F Levofloxacin <=0.25 S F Inducible Clindamycin Resistance Neg NEG F Erythromycin <=0.12 S F Clindamycin <=0.25 S F Linezolid <=2 S F Vancomycin <=0.12 S F Tetracycline <=0.25 S F Normal [facility] Comment on above: Performed By: #### CARRIE MILLER #### [facility] [address] [place] [address] Dr. Gayatri Alcala Covid-19 PCR ([facility])on 06-16 SARS-CoV-2 (COVID-19) RNA MINDA+probe Ql (Unsp spec) Not detected Normal NOT DETECTED [facility] Comment on above: Result Comment: This test is not yet approved or cleared by the [place] FDA. When there are no FDA-approved or cleared tests available, and other criteria are met, FDA can make tests available under an emergency access mechanism called an Emergency Use Authorization (EUA). The EUA for this test is supported by the Director Operations of Health and Human Service's (HHS's) declaration that circumstances exist to justify the emergency use of in vitro diagnostics for the detection and/or diagnosis of the virus that causes COVID-19. This EUA will remain in effect (meaning this test can be used) for the duration of the COVID-19 declaration justifying emergency of IVDs, unless it is terminated or revoked by FDA (after which the test may no longer be used). When diagnostic testing is negative, the possibility of a false negative should be considered in the context of a patient's recent exposures and the presence of clinical signs and symptoms consistent with SARS-CoV-2. Performed By: #### [facility] #### [facility] [address] [place] [address] Dr. Gayatri Alcala INFLUENZA A AND B AGon 07-13 [facility] SEE BELOW Normal [facility] Comment on above: Result Comment: Nega tive for Flu A protein angiten. Infection due to Flu A cannot be ruled out. Flu A angiten in the sample may be below the detection limit of the test. Performed By: #### HOLLAND MILLERRO #### [facility] [address] [place] [address] Dr. [facility] Normal [facility] Comment on above: Result Comment: Nega tive for Flu B protein antigen. Infection due to Flu B cannot be ruled out. Flu B antigen in the sample may be below the detection limit of the test. Performed By: #### Viki SAMPSON ICRO #### [facility] [address] [place] [address] Dr. Gayatri Alcala INFLUENZA A AG Negative Normal NEGATIVE SEE COMMENT [facility] Comment on above: Performed By: #### HOLLAND MILLERRO #### [facility] [address] [place] [address] Dr. Gayatri Alcala INFLUENZA B AG Negative Normal NEGATIVE SEE COMMENT [facility] Comment on above: Performed By: #### HOLLAND MILLERRO #### [facility] [address] [place] [address] Dr. Gayatri Alcala STREPT SCREENon 07-13-2022 STREP SCREEN A Negative Normal NEGATIVE [facility] Comment on above: Performed By: #### G RASTCX, SSCRN #### [facility] [address] [place] [address] Dr. Gayatri Alcala CBC AUTO DIFFon 06-04-2022 BASO # 0.0 103/ul Normal 0.0-0.1 [facility] Comment on above: Performed By: #### C BC #### [facility] [address] [place] [address] Dr. Gayatri Alcala Basophils/100 WBC (Bld) 0.2 % Normal 0.2-2.0 [facility] Comment on above: Performed By: #### C BC #### [facility] [address] [place] [address] Dr. Gayatri Alcala EO # 0.0 103/ul Normal 0.0-0.7 [facility] Comment on above: Performed By: #### C BC #### [facility] [address] [place] [address] Dr. Gayatri Alcala Eosinophils/100 WBC (Bld) 0.4 % Critically low 0.9-7.0 [facility] Comment on above: Performed By: #### C BC #### [facility] [address] [place] [address] Dr. Gayatri Alcala Erythrocyte distribution width (RBC) [Ratio] 12.1 % Normal 11.0-15.0 [facility] Comment on above: Performed By: #### C BC #### [facility] [address] [place] [address] Dr. Gayatri Alcala Hematocrit (Bld) [Volume fraction] 42.6 % Normal 36.0-48.0 [facility] Comment on above: Performed By: #### C BC #### [facility] [address] [place] [address] Dr. Gayatri Alcala Hemoglobin (Bld) [Mass/Vol] 14.6 g/dL Normal 12.0-16.0 [facility] Comment on above: Performed By: #### C BC #### [facility] [address] [place] [address] Dr. Gayatri Alcala IG # 0.04 10e3/ul Critically high 0.00-0.03 [facility] Comment on above: Performed By: #### C BC #### [facility] [address] [place] [address] Dr. Gayatri Alcala IG % 0.4 % Normal 0.0-0.5 [facility] Comment on above: Performed By: #### C BC #### [facility] [address] [place] [address] [address] Gayatri Alcala LYMPH # 0.7 103/ul Critically low 1.2-3.8 [facility] Comment on above: Performed By: #### C BC #### [facility] [address] [place] [address] [address] Gayatri Alcala Lymphocytes/100 WBC (Bld) 7.4 % Critically low 20.5-60.0 [facility] Comment on above: Performed By: #### C BC #### [facility] [address] [place] [address] Dr. Gayatri Alcala MANUAL DIFF REQ NO Normal [facility] Comment on above: Performed By: #### C BC #### [facility] [address] [place] [address] Dr. Gayatri Alcala MCH (RBC) [Entitic mass] 28.5 pg Normal 26.7-34.0 [facility] Comment on above: Performed By: #### C BC #### [facility] [address] [place] [address] Dr. Gayatri Alcala MCHC (RBC) [Mass/Vol] 34.3 g/dL Normal 29.9-35.2 [facility] Comment on above: Performed By: #### C BC #### [facility] [address] [place] [address] Dr. Gayatri Alcala MCV (RBC) [Entitic vol] 83.0 fL Normal 81.0-99.0 [facility] Comment on above: Performed By: #### C BC #### [facility] [address] [place] [address] Dr. Gayatri Alcala MONO # 0.5 103/ul Normal 0.3-0.8 [facility] Comment on above: Performed By: #### C BC #### [facility] [address] [place] [address] Dr. Gayatri Alcala Monocytes/100 WBC (Bld) 5.5 % Normal 1.7-12.0 [facility] Comment on above: Performed By: #### C BC #### [facility] [address] [place] [address] Dr. Gayatri Alcala NEUT # 7.9 103/ul Critically high 1.4-6.5 [facility] Comment on above: Performed By: #### C BC #### [facility] [address] [place] [address] Dr. Gayatri Alcala Neutrophils/100 WBC (Bld) 86.1 % Critically high 43.0-75.0 [facility] Comment on above: Performed By: #### C BC #### [facility] [address] [place] [address] Dr. Gayatri Alcala Platelet mean volume (Bld) [Entitic vol] 10.2 fL Normal 9.5-13.5 [facility] Comment on above: Performed By: #### C BC #### [facility] [address] [place] [address] Dr. Gayatri Alcala PLT 199 103/ul Normal 150-[address] [facility] Comment on above: Performed By: #### C BC #### [facility] [address] [place] [address] Dr. Gayatri Alcala RBC 5.13 106/ul Normal 4.20-5.40 [facility] Comment on above: Performed By: #### C BC #### [facility] [address] [place] [address] Dr. Gayatri Alcala WBC 9.2 103/ul Normal 4.0-11.0 [facility] Comment on above: Performed By: #### C BC #### [facility] [address] [place] [address] Dr. Gayatri Alcala PREG HCG QUALon 06-04-2022 , QUAL Negative Normal NEGATIVE [facility] Comment on above: Performed By: #### P REG #### [facility] [address] [place] [address] Dr. Gayatri Alcala PROF 14(COMP METB)on 022 Albumin [Mass/Vol] 4.1 g/dL Normal 3.4-5.0 [facility] Comment on above: Performed By: #### CARRIE MILLER #### [facility] [address] [place] [address] Dr. Gayatri Alcala Albumin/Globulin [Mass ratio] 1.2 {ratio} Normal [facility] Comment on above: Performed By: #### Viki SAMPSON UMICRO #### [facility] [address] [place] [address] [address] Gayatri Alcala ALP [Catalytic activity/Vol] 68 U/L Normal 46-116 [facility] Comment on above: Performed By: #### Viki SAMPSON UMICRO #### [facility] [address] [place] [address] Dr. Gayatri Alcala ALT [Catalytic activity/Vol] 28 U/L Normal 14-59 [facility] Comment on above: Performed By: #### Viki SAMPSON UMICRO #### [facility] [address] [place] [address] Dr. Gayatri Alcala Anion gap [Moles/Vol] 13.7 mmol/L Normal [facility] Comment on above: Performed By: #### Viki SAMPSON UMICRO #### [facility] [address] [place] [address] Dr. Gayatri Alcala AST [Catalytic activity/Vol] 14 U/L Critically low 15-37 [facility] Comment on above: Performed By: #### Viki SAMPSON UMICRO #### [facility] [address] [place] [address] Dr. Gayatri Alcala Bilirubin [Mass/Vol] 0.7 mg/dL Normal 0.2-1.0 [facility] Comment on above: Performed By: #### Viki SAMPSON, UMICRO #### [facility] [address] [place] [address] Dr. Gayatri Alcala Calcium [Mass/Vol] 8.5 mg/dL Normal 8.5-10.1 [facility] Comment on above: Performed By: #### Viki SAMPSON, UMICRO #### [facility] [address] [place] [address] Dr. Gayatri Alcala Chloride [Moles/Vol] 101 mmol/L Normal 98-107 [facility] Comment on above: Performed By: #### Viki SAMPSON, UMICRO #### [facility] [address] [place] [address] [address] Gayatri Alcala CO2 [Moles/Vol] 26.0 mmol/L Normal 21.0-32.0 [facility] Comment on above: Performed By: #### E TONIR, UMICRO #### [facility] [address] [place] [address] [address] Gayatri Alcala Creatinine [Mass/Vol] 0.67 mg/dL Normal 0.55-1.02 [facility] Comment on above: Performed By: #### Viki SAMPSON, UMICRO #### [facility] [address] [place] [address] Dr. Gayatri Alcala EGFR-AF CUBAN >60 Normal >=60 [facility] Comment on above: Performed By: #### Viki SAMPSON UMICRO #### [facility] [address] [place] [address] Dr. Gayatri Alcala EGFR-NON AF CUBAN >60 Normal >=60 [facility] Comment on above: Performed By: #### Viki SAMPSON, UMICRO #### [facility] [address] [address] [address] Gayatri Alcala Globulin (S) [Mass/Vol] 3.4 g/dL Normal T [facility] Comment on above: Performed By: #### Viki SAMPSON, UMICRO #### [facility] [address] [address] [address] Gayatri Alcala Glucose [Mass/Vol] 93 mg/dL Normal 74-106 [facility] Comment on above: Performed By: #### Viki SAMPSON, UMICRO #### [facility] [address] [address] [address] Gayatri Alcala Potassium [Moles/Vol] 3.7 mmol/L Normal 3.5-5.1 [facility] Comment on above: Performed By: #### Viki SAMPSON, UMICRO #### [facility] [address] [address] [address] Gayatri Alcala Protein [Mass/Vol] 7.5 g/dL Normal 6.4-8.2 [facility] Comment on above: Performed By: #### E CARRIE SAMPSON #### [facility] [address] [place] [address] Dr. Gayatri Alcala Sodium [Moles/Vol] 137 mmol/L Normal 136-145 [facility] Comment on above: Performed By: #### CARRIE MILLER #### [facility] [address] [place] [address] Dr. Gayatri Alcala Urea nitrogen [Mass/Vol] 11.0 mg/dL Normal 6.4-19.3 [facility] Comment on above: Performed By: #### CARRIE MILLER #### [facility] [address] [place] [address] Dr. Gayatri Alcala Urea nitrogen/Creatinine [Mass ratio] 16.4 mg/mg Normal [facility] Comment on above: Performed By: #### CARRIE MILLER #### [facility] [address] [place] [address] Dr. Gayatri Alcala XR NECK SOFT TISSUEon 2021 XR NECK SOFT TISSUE EXAM: XR NECK SOFT TISSUE HISTORY: The patient is a 17-year-old female. Pain COMPARISON: None. FINDINGS: The airway is patent. The epiglottis is thin and normal in appearance. No retropharyngeal tissue swelling is seen. No radiopaque foreign bodies are seen. IMPRESSION: Negative. Electronically authenticated by: ROWDY RUEDA Date: 2022-06-04 00:02 Normal [facility] COVID/FLU RT-PCRon 2 SARS-CoV-2 (COVID-19) RNA MINDA+probe Ql (Unsp spec) Negative [employer] Other COVID/FLU RT-PCR Negative [employer] Other Quick Strepon 04-29-2022 S. agalactiae Ag Ql (Unsp spec) Negative [employer] Other Quick Strep [employer] Other SARS-CoV-2 (COVID-19) RNA NA A+probe Ql (Resp)on 04-29-2022 SARS-CoV-2 (COVID-19) RNA MINDA+probe Ql (Unsp spec) Negative [employer] Other CBC AUTO DIFFon 02-19-2022 BASO # 0.0 103/ul Normal 0.0-0.1 [facility] Comment on above: Performed By: #### C BC #### [facility] [address] [place] [address] Dr. Gayatri Alcala Basophils/100 WBC (Bld) 0.4 % Normal 0.2-2.0 [facility] Comment on above: Performed By: #### C BC #### [facility] [address] [place] [address] Dr. Gayatri Alcala EO # 0.2 103/ul Normal 0.0-0.7 [facility] Comment on above: Performed By: #### C BC #### [facility] [address] [place] [address] Dr. Gayatri Alcala Eosinophils/100 WBC (Bld) 3.1 % Normal 0.9-7.0 [facility] Comment on above: Performed By: #### C BC #### [facility] [address] [place] [address] Dr. Gayatri Alcala Erythrocyte distribution width (RBC) [Ratio] 12.2 % Normal 11.0-15.0 [facility] Comment on above: Performed By: #### C BC #### [facility] [address] [place] [address] Dr. Gayatri Alcala Hematocrit (Bld) [Volume fraction] 42.3 % Normal 36.0-48.0 [facility] Comment on above: Performed By: #### C BC #### [facility] [address] [place] [address] Dr. Gayatri Alcala Hemoglobin (Bld) [Mass/Vol] 14.1 g/dL Normal 12.0-16.0 [facility] Comment on above: Performed By: #### C BC #### [facility] [address] [place] [address] Dr. Gayatri Alcala IG # 0.02 10e3/ul Normal 0.00-0.03 [facility] Comment on above: Performed By: #### C BC #### [facility] [address] [place] [address] Dr. Gayatri Alcala IG % 0.3 % Normal 0.0-0.5 [facility] Comment on above: Performed By: #### C BC #### [facility] [address] [place] [address] Dr. Gayatri Alcala LYMPH # 2.4 103/ul Normal 1.2-3.8 [facility] Comment on above: Performed By: #### C BC #### [facility] [address] [place] [address] Dr. Gayatri Alcala Lymphocytes/100 WBC (Bld) 30.6 % Normal 20.5-60.0 [facility] Comment on above: Performed By: #### C BC #### [facility] [address] [place] [address] Dr. Gayatri Alcala MANUAL DIFF REQ NO Normal [facility] Comment on above: Performed By: #### C BC #### [facility] [address] [place] [address] Dr. Gayatri Alcala MCH (RBC) [Entitic mass] 28.5 pg Normal 26.7-34.0 [facility] Comment on above: Performed By: #### C BC #### [facility] [address] [place] [address] Dr. Gayatri Alcala MCHC (RBC) [Mass/Vol] 33.3 g/dL Normal 29.9-35.2 [facility] Comment on above: Performed By: #### C BC #### [facility] [address] [place] [address] Dr. Gayatri Alcala MCV (RBC) [Entitic vol] 85.5 fL Normal 81.0-99.0 [facility] Comment on above: Performed By: #### C BC #### [facility] [address] [place] [address] Dr. Gayatri Alcala MONO # 0.6 103/ul Normal 0.3-0.8 [facility] Comment on above: Performed By: #### C BC #### [facility] [address] [place] [address] Dr. Gayatri Alcala Monocytes/100 WBC (Bld) 7.6 % Normal 1.7-12.0 [facility] Comment on above: Performed By: #### C BC #### [facility] [address] [place] [address] Dr. Gayatri Alcala NEUT # 4.5 103/ul Normal 1.4-6.5 [facility] Comment on above: Performed By: #### C BC #### [facility] [address] [place] [address] Dr. Gayatri Alcala Neutrophils/100 WBC (Bld) 58.0 % Normal 43.0-75.0 [facility] Comment on above: Performed By: #### C BC #### [facility] [address] [place] [address] Dr. Gayatri Alcala Platelet mean volume (Bld) [Entitic vol] 10.3 fL Normal 9.5-13.5 [facility] Comment on above: Performed By: #### C BC #### [facility] [address] [place] [address] Dr. Gayatri Alcala PLT 240 103/ul Normal 150-[address] [facility] Comment on above: Performed By: #### C BC #### [facility] [address] [place] [address] Dr. Gayatri Alcala RBC 4.95 106/ul Normal 4.20-5.40 [facility] Comment on above: Performed By: #### C BC #### [facility] [address] [place] [address] Dr. Gayatri Alcala WBC 7.7 103/ul Normal 4.0-11.0 [facility] Comment on above: Performed By: #### C BC #### [facility] [address] [place] [address] Dr. Gayatri Alcala ER URINE PROFILEon 2 Bilirubin Ql (U) Negative Normal NEGATIVE [facility] Comment on above: Performed By: #### Viki SAMPSON UMICRO #### [facility] [address] [place] [address] Dr. Gayatri Alcala Clarity (U) CLEAR Normal CLEAR [facility] Comment on above: Performed By: #### Viki SAMPSON UMICRO #### [facility] [address] [place] [address] Dr. Gayatri Alcala Color (U) LT. YELLOW Normal YELLOW [facility] Comment on above: Performed By: #### Viki SAPMSON UMICRO #### [facility] [address] [place] [address] Dr. Gayatri Alcala ERUAHNatalie A micrscopic examination will be performed if indicated. Normal [facility] Comment on above: Performed By: #### Viki SAMPSON UMICRO #### [facility] [address] [place] [address] Dr. Gayatri Alcala Glucose Ql (U) Negative Normal NEGATIVE [facility] Comment on above: Performed By: #### Viki SAMPSON UMICRO #### [facility] [address] [place] [address] Dr. Gayatri Alcala Hemoglobin Ql (U) Negative Normal NEGATIVE [facility] Comment on above: Performed By: #### Viki SAMPSON UMICRO #### [facility] [address] [place] [address] Dr. Gayatri Alcala Ketones Ql (U) Negative Normal NEGATIVE [facility] Comment on above: Performed By: #### Viki SAMPSON UMICRO #### [facility] [address] [place] [address] Dr. Gayatri Alcala LEUKOCYTES MODERATE Abnormal NEGATIVE [facility] Comment on above: Performed By: #### Viki SAMPSON UMICRO #### [facility] [address] [place] [address] Dr. Gayatri Alcala Nitrite Ql (U) Negative Normal NEGATIVE [facility] Comment on above: Performed By: #### Viki SAMPSON UMICRO #### [facility] [address] [place] [address] Dr. Gayatri Alcala pH (U) 7.0 [pH] Normal 5-9 [facility] Comment on above: Performed By: #### HOLLAND MILLERRO #### [facility] [address] [place] [address] Dr. Gayatri Alcala SPEC GRAVITY 1.020 Normal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 of Places Lived in the Last Year: Not on file -Unstable Housing in the Last Year: Not on file SURGICAL HISTORY No past surgical history on file. CURRENT MEDICATIONS No outpatient medications have been marked as taking for the 05/12/21 encounter (Hospital Encounter). ALLERGIES Allergies AllergenReactions -Opioids - Morphine Analogues PHYSICAL EXAM VITAL SIGNS: ED Triage Vitals [05/12/21 0213] BP(!) 90/77 Temp98.6 ?F (37 ?C) Heart Rate88 Resp18 BuQ763 % Savliy897 lb (68.9 kg) [place] Coma Scale Score15 BMI (Calculated)24.6 Gen: alert. Mildly agitated crying and talking about wanting to harm her self and now she hit her self. Skin: warm and dry Head: NC/AT Eyes: normal conjunctiva ENT: moist mucous membranes Pulm: CTAB. breathing comfortably on room air CV: RRR. warm, well perfused extremities. Abd: soft NT, ND Ext: MAEW, no edema Neuro: AOx3, no focal deficits noted Psych: Tearful agitated depressed endorses suicidal thoughts RADIOLOGY/PROCEDURE S CBC W/DIFF - Abnormal; Notable for the following components: ResultValueRef RangeStatus WBC10.8 (*)4.0 - 10.5 K/uLFinal RBC5.34 (*)3.86 - 5.17 M/uLFinal All other components within normal limits DRUGS OF ABUSE URINE - Abnormal; Notable for the following components: Cannabinoid MetabPositive (*)NegativeFinal All other components within normal limits Narrative: Drug Screen Cut-off values: Amphetamines 300 ng/ml Benzodiazepines 200 ng/ml Barbiturates 200 ng/ml Cocaine metabolite 300 ng/ml Cannabinoids 50 ng/ml Opiates 300 ng/ml * Results are unconfirmed screening results and should only be used for medical purposes. SERUM TOX SCREEN - Abnormal; Notable for the following components: Acetaminophen Level<10 (*)10 - 30 ug/mLFinal [id number] (*)<10 mg/dLFinal Salicylate<2.5 (*)3.0 - 20.0 mg/dLFinal All other components within normal limits Narrative: Salicylate Therapeutic Range: 20-25 mg/dL Acetaminophen (more content not included)... Normal [facility] SERUM TOX SCREENon ACETAMINOPHEN LEVEL <10 Abnormal 10-30 [facility] Comment on above: Performed By: #### L [id number] #### AMY AND [address] [place] AND [place] [phone] Ethanol [Mass/Vol] 301 mg/dL Abnormal <10 [facility] Comment on above: Performed By: #### L [id number] #### AMY AND [address] AM[place] AND [place] [phone] SALICYLATE ([facility]/IRS) <2.5 Abnormal 3.0-20.0 [facility] Comment on above: Performed By: #### L [id number] #### AMY AND [address] AMY AND [place] [phone] SERUM TOX SCREEN Normal [facility] Comment on above: Result Comment: Sali cylate Therapeutic Range: 20-25 mg/dL Acetaminophen Therapeutic Range:10.00-30.00 ug/mL Release to patient->Immediate Performed By: #### L [id number] #### AMY AND [address] AM[place] AND [place] [phone] URINALYSIS WITH REFLEX TO ND OPEon 05-12-2021 BACTERIA Trace Abnormal Negative [facility] Comment on above: Performed By: #### L [id number] #### AMY AND [address] AMY AND [address] [place], [place] [address] BILIRUBIN, UA Negative Normal Negative [facility] Comment on above: Performed By: #### L [id number] #### AM[place] AND [place] [address] [facility] [place] [address] [place] AMY AND [address] [place] [address] BLOOD, UA Negative Normal Negative [facility] Comment on above: Performed By: #### L [id number] #### AMY AND [address] [place] [address] [place] AND [place] [address] Clarity (U) Clear Normal Clear [facility] Comment on above: Performed By: #### L [id number] #### AMY AND [address] [place] [address] [place] AM[place] AND [address] [place] [phone] Color (U) Colorless Abnormal Yellow [facility] Comment on above: Performed By: #### L [id number] #### AMY AND [address] [place] [address] [place] AND [place] [address] GLUCOSE, UA Normal Normal Normal [facility] Comment on above: Performed By: #### L [id number] #### AMY AND [address] [place] [address] [place] [address] KETONES, UA Negative Normal Negative [facility] Comment on above: Performed By: #### L [id number] #### AMY AND [address] [place] [address] [place] AM[place] [address], [place] [address] LEUKOCYTES, UA Negative Normal Negative [facility] Comment on above: Performed By: #### L [id number] #### AMY AND [address] [place] [address] Nitrite Ql (U) Negative Normal Negative [facility] Comment on above: Performed By: #### L [id number] #### AMY AND [address] [place] [address] pH (U) 6.0 [pH] Normal 5.0-8.0 [facility] Comment on above: Performed By: #### L [id number] #### AMY AND [address] [place] [address] Protein (U) [Mass/Vol] 30 mg/dL Abnormal Negative [facility] Comment on above: Performed By: #### L [id number] #### AMY AND [address] [place] AND [place] [address] RBC 0-3 Normal 0-3 [facility] Comment on above: Performed By: #### L [id number] #### AMY AND [address] [place] AND [place] [address] SPECIFIC GRAVITY, UA 1.008 Normal 1.001-1.035 [facility] Comment on above: Performed By: #### L [id number] #### AMY AND [address], [address] [place] AND [place] [phone] SQUAMOUS EPI 0-3 Normal 0-3 [facility] Comment on above: Performed By: #### L [id number] #### AMY AND [address] [place] AND [place] [phone] URINALYSIS WITH REFLEX TO SCOPE Normal [facility] Comment on above: Result Comment: Rele ase to patient->Immediate Performed By: #### L [id number] #### AMY AND [address] [place] [phone] UROBILINOGEN, UA Normal Normal Normal [facility] Comment on above: Performed By: #### L [id number] #### AMY AND [address] [place] AND [place] [phone] WBC 0-3 Normal 0-3 [facility] Comment on above: Performed By: #### L [id number] #### AMY AND [address] [place] AND [place] [phone] ED Provider Noteson 03-14-20 ED Provider Notes Encounter Department: [facility]: EMERGENCY CENTER ED Provider Notes by CHAR Blanco at 03/14/2021 6:38 PM Author: CHAR BlancoService: Emergency MedicineAuthor Type: Nurse Practitioner Filed: 03/14/2021 10:12 PMDate of Service: 03/14/2021 6:38 PMStatus: Signed Physical Therapist Center Manager: Maddy Benton APRN-MARK (Nurse Practitioner) CHIEF COMPLAINT Chief Complaint Patient presents with -Foot Injury Left foot. GEORGINA Carr is a 16 y.o. female who presents to the Emergency Department with complaints of pain to the dorsal aspect of her left foot after striking it on the bottom of her metal bunk bed approximately 1 hr ago. The patient describes the pain as constant and rates it 10/10. She has not taken anything for the pain. Ambulation and palpation make the pain worse. Denies any recent illnesses, CP, SOB, abd pain, nausea, or vomiting. Denies any tingling, numbness or weakness in her extremities. She denies other injuries or complaints. REVIEW OF SYSTEMS Review of Systems Constitutional: Negative for chills and fever. HENT: Negative for congestion and sore throat. Respiratory: Negative for cough and shortness of breath. Cardiovascular: Negative for chest pain. Gastrointestinal: Negative for abdominal pain, nausea and vomiting. Musculoskeletal: Positive for arthralgias. Negative for back pain and myalgias. Neurological: Negative for light-headedness, numbness and headaches. Psychiatric/Behavio ral: Negative for agitation. The patient is not nervous/anxious. PAST MEDICAL HISTORY No past medical history on file. FAMILY HISTORY No family history on file. SOCIAL HISTORY Social History Socioeconomic History -Marital status:Single Spouse name:Not on file -Number of children:Not on file -Years of education:Not on file -Highest education level:Not on file Occupational History -Not on file Tobacco Use -Smoking status:Not on file Substance and Sexual Activity -Alcohol use:Not on file -Drug use:Not on file -Sexual activity:Not on file Other TopicsConcern -Not on file Social History Narrative -Not on file Social Determinants of Health Financial Resource Strain: -Difficulty of Paying Living Expenses: Not on file Food Insecurity: -Worried About Running Out of Food in the Last Year: Not on file -Ran Out of Food in the Last Year: Not on file Transportation Needs: -Lack of Transportation (Medical): Not on file -Lack of Transportation (Non-Medical): Not on file Physical Activity: -Days of Exercise per Week: Not on file -Minutes of Exercise per Session: Not on file Stress: -Feeling of Stress : Not on file Social Connections: -Frequency of Communication with Friends and Family: Not on file -Frequency of Social Gatherings with Friends and Family: Not on file -Attends Faith Services: Not on file -Active Member of Clubs or Organizations: Not on file -Attends Club or Organization Meetings: Not on file -Marital Status: Not on file Intimate Partner Violence: -Fear of Current or Ex-Partner: Not on file -Emotionally Abused: Not on file -Physically Abused: Not on file -Sexually Abused: Not on file SURGICAL HISTORY No past surgical history on file. CURRENT MEDICATIONS No outpatient medications have been marked as taking for the 03/14/21 encounter (Hospital Encounter). ALLERGIES Allergies AllergenReactions -Opioids - Morphine Analogues PHYSICAL EXAM VITAL SIGNS: ED Triage Vitals [03/14/21 1714] BP124/60 Temp98 ?F (36.7 ?C) Heart Rate87 Resp25 PtM362 % Loldis001 lb (70.3 kg) Felicia Coma Scale Score BMI (Calculated)25.1 Constitutional: Well developed, Well nourished, Minimal acute distress Non-toxic appearance. HENT: Normocephalic, Atraumatic, Bilateral external ears normal, Oropharynx moist, No oral exudates, Nose normal. Eyes: Conjunctiva normal, No discharge. Neck: Normal range of motion, No tenderness, Supple, No stridor. Cardiovascular: normal rate, regular rhythm. Thorax AND Lungs: Normal breath sounds, No respiratory distress, No wheezing, No chest tenderness. Abdomen: , Soft, No tenderness, No masses, No pulsatile masses. Skin: Warm, Dry, No erythema, No rash, No mottling, No cyanosis, No flushing Extremities: Intact distal pulses, Slight edema and ecchymosis noted to the dorsal aspect of the L foot with tenderness to palpation, pedal pulse 2+, No ankle tenderness,Normal capillary refill and perfusion, No cyanosis, No clubbing. Musculoskeletal: Good range of motion in all major joints. No major deformities noted. Neurologic: Alert AND oriented x 3, GCS 15, Normal motor function, Normal sensory function, No focal deficits noted. Psychiatric: Affect normal, Judgment normal, Mood normal. RADIOLOGY/PROCEDURE S Images reviewed by me and with radiology interpretation Last Imaging results Results for orders placed or performed during the hospital encounter of 03/14/21 XR-FOOT LEFT 3 OR (more content not included)... Normal [facility] Vital Signs Date Time Vital Sign Value Performing Clinician Facility 09-30-2023 12:58-0400 Body temperature 98.96 [degF] Angie Orzech [facility] 09-30-2023 12:58-0400 Diastolic blood pressure 86 mm[Hg] Angie Orzech [facility] 09-30-2023 12:58-0400 Heart rate 84 /min Angie Orzech [facility] 09-30-2023 12:58-0400 Systolic blood pressure 128 mm[Hg] Angie Orzech [facility] 05-01-2023 10:45-0400 Body height 167.64 cm Shruthi Dillon Other [facility] Other 05-01-2023 10:45-0400 Body mass index (BMI) [Ratio] 28.24 kg/m2 Shruthi Wilma Other [facility] Other 05-01-2023 10:45-0400 Body temperature 98.5 [degF] Shruthi Wilma Other [facility] Other 05-01-2023 10:45-0400 Body weight 79.38 kg Srhuthi Dillon Other [facility] Other 05-01-2023 10:45-0400 Diastolic blood pressure 68 mm[Hg] Shruthi Dillon Other [facility] Other 05-01-2023 10:45-0400 Respiratory rate 18 /min Shruthi Dillon Other [facility] Other 05-01-2023 10:45-0400 SaO2% (BldA) [Mass fraction] 98 % Shruthi Dillon Other [facility] [employer] Other 05-01-2023 10:45-0400 Systolic blood pressure 110 mm[Hg] Shruthi Dillon Other [facility] [employer] Other 12-13-2022 08:13-0400 Diastolic blood pressure 73 mm[Hg] [facility] 12-13-2022 08:13-0400 Heart rate 54 /min [facility] 12-13-2022 08:13-0400 Respiratory rate 18 /min [facility] 12-13-2022 08:13-0400 SaO2% (BldA) [Mass fraction] 100 % [facility] 12-13-2022 08:13-0400 Systolic blood pressure 127 mm[Hg] [facility] 12-13-2022 07:09-0400 Body height 167.64 cm [facility] 12-13-2022 07:09-0400 Body temperature 98.2 [degF] [facility] 12-13-2022 07:09-0400 Body weight 81.4 kg [facility] 08-07-2022 14:05-0500 Body height 167.64 cm [facility] 08-07-2022 14:05-0500 Body weight 77.27 kg [facility] 08-07-2022 14:04-0500 Body temperature 97.6 [degF] [facility] 08-07-2022 14:04-0500 Diastolic blood pressure 55 mm[Hg] [facility] 08-07-2022 14:04-0500 Heart rate 68 /min [facility] 08-07-2022 14:04-0500 Respiratory rate 18 /min [facility] 08-07-2022 14:04-0500 SaO2% (BldA) [Mass fraction] 98 % [facility] 08-07-2022 14:04-0500 Systolic blood pressure 124 mm[Hg] [facility] 06-02-2022 11:15-0500 Body height 167.64 cm Valarie Ramesh Other [facility] Other 06-02-2022 11:15-0500 Body mass index (BMI) [Ratio] 28.57 kg/m2 Valarie Ramesh Other [facility] Other 06-02-2022 11:15-0500 Body temperature 97.7 [degF] Valarie Ramesh Other [facility] Other 06-02-2022 11:15-0500 Body weight 80.29 kg Valarie Ramesh Other [facility] Other 06-02-2022 11:15-0500 Diastolic blood pressure 78 mm[Hg] Valarie Ramesh Other [facility] Other 06-02-2022 11:15-0500 Respiratory rate 18 /min Valarie Ramesh Other [facility] Other 06-02-2022 11:15-0500 SaO2% (BldA) [Mass fraction] 96 % Valarie Ramesh Other [facility] Other 06-02-2022 11:15-0500 Systolic blood pressure 122 mm[Hg] Valarie Ramesh Other [facility] Other 04-29-2022 13:05-0400 Body height 167.64 cm Sumaya Cabezas Other [facility] Other 04-29-2022 13:05-0400 Body mass index (BMI) [Ratio] 28.24 kg/m2 Sumaya Cabezas Other [facility] Other 04-29-2022 13:05-0400 Body temperature 98.4 [degF] Sumaya Cabezas Other [facility] Other 04-29-2022 13:05-0400 Body weight 79.38 kg Sumaya Cabezas Other [facility] Other 04-29-2022 13:05-0400 Respiratory rate 18 /min Sumaya Cabezas Other [facility] Other 04-29-2022 13:05-0400 SaO2% (BldA) [Mass fraction] 97 % Sumaya Cabezas Other [facility] Other Encounters Encounter Date Encounter Type Care Provider Facility Start: 04-01-2024 ambulatory Dorcas Rubin [facility] Start: 09-30-2023 End: 10-01-2023 ambulatory Angie X Orzech Facility:[facility] Start: 09-30-2023 End: 09-30-2023 Patient encounter procedure Angie Earl [facility] Start: 07-10-2023 End: 07-10-2023 ambulatory YUE COLE Not Available Start: 06-10-2023 End: 06-10-2023 ambulatory YUE REESES Not Available Start: 05-01-2023 End: 05-01-2023 ambulatory Shruthi Dillon Other [facility] Other Start: 05-01-2023 Office outpatient visit 15 minutes Shruthi Dillon [facility] Start: 04-19-2023 End: 04-20-2023 ambulatory Dorcas M. Lue Facility[place] [place] Start: 04-19-2023 End: 04-20-2023 ambulatory Dorcas Rubin Facility:[facility] Start: 12-13-2022 End: 12-13-2022 Emergency department patient visit NON STAFF Facility:[facility] Start: 12-13-2022 End: 12-13-2022 Emergency department patient visit [facility] Work Phone: Start: 08-07-2022 End: 08-07-2022 Emergency department patient visit Rand Reed Facility:[facility] Start: 08-07-2022 End: 08-07-2022 Emergency department patient visit [facility] Work Phone: Start: 07-16-2022 ambulatory SHRUTHI RONDON Facility: [facility] Start: 07-13-2022 End: 07-14-2022 ambulatory SHRUTHI RONDON Facility:[facility] Start: 06-03-2022 End: 06-04-[address] JACK KANG Facility:[facility] Start: 06-02-2022 End: 06-02-2022 ambulatory Valarie Ramesh Other [facility] Other Start: 06-02-2022 Office outpatient visit 25 minutes Valarie Ramesh [facility] Start: 04-29-2022 End: 04-29-2022 ambulatory Sumaya Cabezas Other [facility] Other Start: 04-29-2022 Office outpatient visit 25 minutes Sumaya Cabezas [facility] Start: 02-19-2022 End: 02-19-[address] DOCTOR DOSS Facility:[facility] Start: 01-23-2022 End: 01-23-[address] MILAGRO ORNELAS Facility:[facility] Procedures Date Procedure Procedure Detail Performing Clinician Start: 08-07-2022 X-ray of right ankle Start: 07-15-2006 Tonsillectomy and adenoidectomy Angie Earl Plan of Treatment Date Care Activity Detail Author Start: 12-13-2022 Bacteria identified in Urine by Culture [facility] Patient Education [facility] Work Phone: Patient referral [facility] Work Phone: Immunizations Immunization Date Immunization Notes Care Provider Donna camarillo 11-10-2020 COVID-19 mRNA, Comirnaty (Pfizer) [facility] 10-20-2020 COVID-19 mRNA, Comirnaty (Pfizer) [facility] 10-05-2019 meningococcal ACWY vaccine, unspecified formulation Angie Orzech [facility] 10-05-2019 meningococcal polysaccharide (groups A, C, Y and W-135) diphtheria toxoid conjugate vaccine (MCV4P) Sumaya Cabezas Other [facility] Other 04-19-2015 human papilloma viru s vaccine, quadrivalent Sumaya Cabezas Other [facility] Other 12-17-2014 human papilloma viru s vaccine, quadrivalent Sumaya Cabezas Other [facility] Other 09-24-2014 meningococcal polysaccharide (groups A, C, Y and W-135) diphtheria toxoid conjugate vaccine (MCV4P) Sumaya Cabezas Other [facility] Other 09-24-2014 tetanus toxoid, reduced diphtheria toxoid, and acellular pertussis vaccine, adsorbed Sumaya Cabezas Other [facility] Other 09-24-2014 human papilloma viru s vaccine, quadrivalent Sumaya Cabezas Other [facility] Other 09-24-2014 meningococcal ACWY, unspecified formulation Angie Orzech [facility] 11-05-2007 DTaP, unspecified formulation Angie Orzech [facility] 11-05-2007 measles, mumps and rubella virus vaccine Angie Orzech [facility] 11-05-2007 poliovirus vaccine, unspecified formulation Angie Orzech [facility] 11-05-2007 varicella virus vaccine Angie Orzech [facility] 12-20-2004 diphtheria, tetanus toxoids and acellular pertussis vaccine Angie Orzech [facility] 05-11-2004 diphtheria, tetanus toxoids and acellular pertussis vaccine Angie Orzech [facility] 05-11-2004 haemophilus influenz ae type b vaccine, PRP-T conjugate Angie Orze[employer] [facility] 05-11-2004 poliovirus vaccine, unspecified formulation Angie Orzech [facility] 03-07-2004 diphtheria, tetanus toxoids and acellular pertussis vaccine Angie Orzech [facility] 03-07-2004 measles, mumps and rubella virus vaccine Angie Orzech [facility] 03-07-2004 poliovirus vaccine, unspecified formulation Angie Orzech [facility] 03-07-2004 varicella virus vaccine Angie Orzech [facility] 2003 diphtheria, tetanus toxoids and acellular pertussis vaccine Angie Orzech [facility] 2003 poliovirus vaccine, unspecified formulation Free & Clear [facility] 2003 hepatitis B vaccine, pediatric or pediatric/adolescent dosage Free & Clear [facility] NEGATED: Highlighted row has not occurred!08-23-2019 influenza virus vaccine, live, attenuated, for intranasal use Free & Clear [facility] Care Payers Date Payer Category Payer Unknown [id number] 2022 Unknown [id number] 2003 Unknown [id number] 93 2003 Unknown [id number] [id number] 93 2003 Unknown [id number] [id number] 93 2003 Unknown [id number] [id number] 93 2003 Unknown [id number] [id number] 93 2003 Unknown [id number] [id number] 259 2003 Unknown [id number] [id number] 259 2003 Unknown [id number] [id number] 27 1959 Private Health Insurance [id number] 1959 Self-pay 1959 Unknown [id number] [id number] 1954 Unknown [id number] [id number] 27 1954 Unknown [id number] 2.16.840.1.136841.3.579.2.7 27 1954 Unknown [id number] [id number] 27 Private Health Insurance [facility] [id number] Unknown [id number] [id number] 31 Unknown [id number] [id number] 31 Social History Date Type Detail Facility Unknown if ever smoked [facility] Other Sex Assigned At [facility] Start: 08-07-2022 End: 12-13-2022 Tobacco smoking status NHIS Smoker (finding) [facility] Start: 2003 Sex Assigned At Female F [facility] Start: 09-30-2023 Tobacco smoking status Never s moked tobacco (finding) [facility] Functional Status Date Assessment Result Facility 09-30-2023 Functional Status N/A [facility] Clinical Notes 05-24-2013 to 05-01-2023 Note Date & Type Note Facility 05-01-2023 Evaluation note Encounter Date Diagnosis Assessment Notes Apr, Acute sinusitis, recurrence not specified, unspecified location (ICD-10 - J01.90) Sinusitis home care material was printed Fluids, get plenty of rest. Take the amoxicillin with clavulanate and the prednisone as prescribed until gone. Use the fluticasone nasal spray as prescribed until your symptoms improved. Take Tylenol or Motrin for aches pains or fevers. Follow-up with your family physician if no improvement in 2 to 3 days. May return to work tomorrow [facility] Other 11-19-2022 Evaluation note* Encounter Date Diagnosis Assessment Notes Treatment Notes Treatment Clinical Notes May, Contact with and (suspected) exposure to covid-19 (ICD-10 - Z20.822) May, Right acute otitis media (ICD-10 - H66.91) Ear infections are often a secondary infection caused from an URI, the flu or allergies. Take medication as directed. Complete all doses, even if you feel better. Tylenol or ibuprofen can help with pain. Warm pack to area for comfort helps as well. Follow up with primary care provider if no improvement of symptoms. May, Viral URI (ICD-10 - J06.9) Symptoms appear viral today. Bacteria infections take several days to weeks of symptoms to develop. Use saline nasal spray before prescription one and you have better results. Recommend OTC medications such as Mucinex DM, Delsym, Cepocal Lozenges Continue tylenol/ibuprofen for general discomfort. Encourage fluids. Symptoms should improve within the next 10-14 days. If no improvement of symptoms in 14 days call primary care provider to discuss antibiotic therapy May, Tonsillitis (ICD-10 - J03.90) Take medications as directed. Saltwater gargles may help with pain and disrupts bacteria and viral infections. Continue tylenol/ibu for general discomfort. Encourage fluids. Symptoms should improve within the next 4-7 days. [facility] Other 10-16-2022 Evaluation note* Encounter Date Diagnosis Assessment Notes Treatment Notes Treatment Clinical Notes Apr, Contact with and (suspected) exposure to other viral communicable diseases (ICD-10 - Z20.828) Apr, Viral URI (ICD-10 - J06.9) Advised patient that COVID PCR test and rapid Strep test was negative today. Advised patient that will treat as viral URI. Supportive care as directed, increase fluids and rest, Tylenol/Motrin as directed, OTC cough/cold remedies as directed on packaging, cool mist humidifier, throat lozenges. Discussed infection control practices such as good hand washing and mask wearing. Patient to follow up with PCP if symptoms persist or worsen despite treatment. Immediate eval for SOB, difficulty, chest pain, fevers that do not break with antipyretic or any other concerning symptoms as reviewed on patient education handout. Patient verbalizes understanding and is agreeable to treatment plan. Patient left in stable condition [facility] Other 08-31-2021 NotePROCEDURE: XR-FOOT LEFT 3 OR MORE VIEWS DATE OF EXAM: 03/14/2021 7:04 PM DEMOGRAPHICS: 16 years old Female INDICATION: trauma. History: trauma.. Number of Series/Images: 3. COMPARISON: No existing relevant imaging study corresponding to the same anatomical region is available. FINDINGS: 3 views of the Left foot were obtained. The osseous structures are intact. The joint spaces are maintained. There is no significant soft tissue swelling. No discrete radiopaque foreign body or subcutaneous emphysema. IMPRESSION: IMPRESSION: 1. No evidence for acute findings. This dictation was created with voice recognition software. While attempts have been made to review the dictation as it is transcribed, on occasion the spoken word can be misinterpreted by the technology leading to omissions or inappropriate words, phrases or sentences. Electronically Signed by: Alistair Cohen DO [facility] general Narrative - Reported* Type Description Date Medical History GENERALLY HEALTHY Medical History ADHD Medical History 05/24/13 Fx left arm Surgical History tonsillectomy and adenoidectomy 07/2007 Surgical History soft palate repair 02/2008 [facility] [employer] Other 11-10-2013 History general Narrative - Reported* Type Description Date Medical History GENERALLY HEALTHY Medical History ADHD Medical History 05/24/13 Fx left arm Medical History IBS (irritable bowel syndrome) Surgical History tonsillectomy and adenoidectomy 07/2007 Surgical History soft palate repair 02/2008 [facility] [employer] Other Evaluation + Plan note Future Appointments Appointment Date:04/01/2024 09:45:00 AM Scheduled Provider:Dorcas Rubin MD Location:[facility] Appointment Type:URO Office Visit [facility] Evaluation noteNo assessment information available [facility] Work Phone: Hospital course Narrative No data available for this section [facility] Hospital Discharge instructions Additional Instructions Continue rest ice elevate Ibuprofen every 6 hours for discomfort Try the Robin wrap to see if that helps better than the walking boot Follow-up with family doctor as needed or [facility] Return to the ER for more severe pain significant bruising swelling or [facility] Discharge instructions Additional Instructions Follow-up with your primary care doctor Return to ED for develop worsening [facility] Work [facility] Hospital Discharge instructions No data available for this section [facility] Progress note No data available for this section [facility] Summary Purpose Family History No Family History Records FoundNo Family History Records FoundNo Family History Records FoundNo Family History Records FoundNo Family History Records Found No data available for this section No Family History Records Found Advance Directives No Advanced Directives Records Found Advance Directive Response Recorded Date/ Time Advance Directives No May 12:54pm Advance Directive Response Recorded Date/ Time Advance Directives No May 1:54pm Chief Complaint and Reason for Visit Chief Complaint R ankle pain ICO kid korral Chief Complaint Stomach Pain Additional Source Comments INFORMATION SOURCE (unrecogn ized section and content) DATE CREATED AUTHOR 05/19/2021 [facility] DATE CREATED AUTHOR AUTHOR'S ORGANIZ ATION 07/29/2021 [facility] DATE CREATED AUTHOR AUTHOR'S ORGANIZ ATION 07/17/2022 [facility] DATE CREATED AUTHOR AUTHOR'S ORGANIZ ATION 01/04/2023 [facility] DATE CREATED AUTHOR AUTHOR'S ORGANIZ ATION 07/12/2023 [facility] EPIC DATE CREATED AUTHOR AUTHOR'S ORGANIZ ATION 10/02/2023 [facility] REASON FOR VISIT (unrecogniz ed section and content) ORANGE HONDA, FEVER, COUGHSO RE THROAT H/AFEVER YESTERDAY, THROAT SORE, ACHES Care Teams (unrecognized sec tion and content) Team Status: Inactive Member Role Status Dates NON STAFF Primary Care Provider Active Rand Reed [facility] Emergency Provider Active Team Status: Active Member Role Status Dates NON STAFF Primary Care Provider Active Team Status: Inactive Member Role Status Dates NON STAFF Primary Care Provider Active Rojas Lucio DO Emergency Provider Active Goals (unrecognized section and content) Goals may be documented in a n alternate section FOR RECORDS PERTAINING TO PATIENTS WHO ARE OR HAVE BEEN ENROLLED IN A CHEMICAL DEPENDENCY/SUBSTANCEABUSE PROGRAM, SOME INFORMATION MAY BE OMITTED. This clinical summary was aggregated from multiple sources. Caution should be exercised in using it in the provision of clinical care. This summary normalizes information from multiple sources, and as a consequence, information in this document may materially change the coding, format and clinical context of patient data. In addition, data may be omitted in some cases. CLINICAL DECISIONS SHOULD BE BASED ON THE PRIMARY CLINICAL RECORDS. [email or web address] [facility]. provides no warranty or guarantee of the accuracy or completeness of information in this document.
== END 2023-11-01 10:02 | disposition home or self-care (01) ==
LOC: US 10:01
PROVIDERS: PCP Family Medicine; Visit Provider Nurse Practitioner Family
DX: R10.9 Unspecified abdominal pain (principal); R39.9 Unspecified symptoms and signs involving the genitourinary system
CPT/HCPCS: 76770

== ENCOUNTER 2025-05-04 09:47 | Outpatient (RCR) | payer OTHER, SELFPAY | END 2025-07-14 18:10 | disposition home or self-care (01) | LOC: ST 09:47 | PROVIDERS: PCP Family Medicine | DX: J38.2 Nodules of vocal cords (principal) | CPT/HCPCS: 92507; 92524 ==